=== PATIENT | male | born 1955 | race Hispanic/Latino ===

== ENCOUNTER 2016-11-09 18:52 | Emergency (ER) | payer SELFPAY ==
[2016-11-09 20:21] VITALS: BP 139/90
[2016-11-10] MEDS ORDERED: DECADRON IM ONE (00:19)
[2016-11-10] MEDS ORDERED: PROVENTIL IH ONE (00:19)
--- NOTE | 2016-11-10 00:23 | Emergency Department Report ---
- General Chief Complaint: Upper Respiratory Infection Stated Complaint: COLD SYMPTOMS/SINUS CONGESTION Source: patient Mode of arrival: Ambulatory Limitations: No Limitations - History of Present Illness Initial Comments: 61-year-old male comes in for complaint of nasal congestion cough no fever no chills for 1-1/2 months. Patient reports that he's been taking over-the- counter nasal spray from [employer] that's not working. She does have a past medical history of COPD asthma. He does admit to wheezing and coughing. He reports in the past he was given a steroid injection which helped with his nasal congestion and wheezing. He has no known drug allergies. - Related Data Home Medications Medication Instructions Recorded Confirmed Last Taken ALPRAZolam [Xanax TAB] 1 mg PO BID 04/14/15 04/14/15 04/14/15 Combivent Respimat 04/14/15 04/14/15 04/14/15 oxyCODONE ER [OxyCONTIN] 30 mg PO 5XD 04/14/15 04/14/15 04/14/15 traZODone [Desyrel] 50 mg PO BID 04/14/15 04/14/15 04/14/15 Previous Rx's Medication Instructions Recorded Last Taken Type ALBUTEROL Inhaler [ProAir HFA 2 puff IH QID PRN #1 inhalation 04/15/15 Unknown Rx Inhaler] Sulfamethoxazole/Trimethoprim 1 each PO BID #14 tablet 04/15/15 Unknown Rx [Bactrim DS TAB] predniSONE [Deltasone] 40 mg PO QDAY #10 tab 04/15/15 Unknown Rx Fluticasone [Flonase] 1 spray NS QDAY #1 bottle 11/10/16 Unknown Rx Allergies Allergy/AdvReac Type Severity Reaction Status Date / Time No Known Allergies Allergy Verified 04/15/15 02:50 ED Review of Systems ROS: Stated complaint: COLD SYMPTOMS/SINUS CONGESTION Other details as noted in HPI Constitutional: denies: chills, fever ENT: congestion. denies: ear pain, throat pain Respiratory: cough Cardiovascular: denies: chest pain, palpitations Gastrointestinal: denies: abdominal pain, nausea, diarrhea Musculoskeletal: denies: back pain, joint swelling, arthralgia Skin: denies: rash, lesions ED Past Medical Hx - Past Medical History Previous Medical History?: Yes Hx Psychiatric Treatment: Yes (anxiety) Hx COPD: Yes (emphysema) Additional medical history: Back pain with herniated disc - Surgical History Past Surgical History?: No - Social History Smoking Status: Current Every Day Smoker Substance Use Type: Prescribed - Medications Home Medications: Home Medications Medication Instructions Recorded Confirmed Last Taken Type ALPRAZolam [Xanax TAB] 1 mg PO BID 04/14/15 04/14/15 04/14/15 History Combivent Respimat 04/14/15 04/14/15 04/14/15 History oxyCODONE ER [OxyCONTIN] 30 mg PO 5XD 04/14/15 04/14/15 04/14/15 History traZODone [Desyrel] 50 mg PO BID 04/14/15 04/14/15 04/14/15 History ALBUTEROL Inhaler [ProAir HFA 2 puff IH QID PRN #1 inhalation 04/15/15 Unknown Rx Inhaler] Sulfamethoxazole/Trimethoprim 1 each PO BID #14 tablet 04/15/15 Unknown Rx [Bactrim DS TAB] predniSONE [Deltasone] 40 mg PO QDAY #10 tab 04/15/15 Unknown Rx Fluticasone [Flonase] 1 spray NS QDAY #1 bottle 11/10/16 Unknown Rx ED Physical Exam - General Limitations: No Limitations General appearance: alert, in no apparent distress - Head Head exam: Present: atraumatic, normocephalic - Eye Eye exam: Present: normal appearance, PERRL, EOMI - ENT ENT exam: Present: normal exam, mucous membranes moist - Neck Neck exam: Present: normal inspection - Respiratory Respiratory exam: Present: wheezes, rhonchi - Cardiovascular Cardiovascular Exam: Present: regular rate, normal rhythm, normal heart sounds - Extremities Exam Extremities exam: Absent: pedal edema ED Course Vital Signs 11/09/16 20:18 Temperature 97.9 F Pulse Rate 71 Respiratory 18 Rate Blood Pressure 139/90 O2 Sat by Pulse 98 Oximetry - Reevaluation(s) Reevaluation #1: 11/10/16 01:26 Patient reports that he feels a little bit better that he is able to breathe through his nose. He is still has some expiratory wheezing at the bases. He reports that he feels like he is breathing better. He does have an albuterol machine as well as albuterol nebs. ED Medical Decision Making - Medical Decision Making Patient's been evaluated by this provider in fast track. Discussed with patient that we'll order a nebulizer treatment. To help with his respiratory wheezing. We'll also ordered Decadron 8 mg IM now. We will discharge patient on Flonase 50 g. As well as placed patient on Claritin-D 1 tablet by mouth twice a day. Verbalize understanding Critical care attestation.: If time is entered above; I have spent that time in minutes in the direct care of this critically ill patient, excluding procedure time. ED Disposition Clinical Impression: Nasal congestion due to prolonged use of decongestants COPD (chronic obstructive pulmonary disease) Qualifiers: COPD type: chronic bronchitis Chronic bronchitis type: simple Qualified Code(s) : J41.0 - Simple chronic bronchitis Disposition: DISCHARGED TO HOME OR SELFCARE Is pt being admited?: No Does the pt Need Aspirin: No Condition: Stable Instructions: Chronic Obstructive Pulmonary Disease (ED) Additional Instructions: Patient uses nebulizer every 4-6 hours when necessary for wheezing and cough. Discussed with patient denies any placed on Flonase 50 g 1 spray to each nostril daily. Recommend him to stay away from the Afrin type nasal spray. Verbalized understanding Prescriptions: Fluticasone [Flonase] 1 spray NS QDAY #1 bottle Referrals: LEE HERNANDEZ MD [Staff Physician] - 3-5 Days Forms: Work/School Release Form(ED)
== END 2016-11-10 01:36 | disposition home or self-care (01) ==
LOC: ED 18:52
DX: R09.81 Nasal congestion (principal); J41.0 Simple chronic bronchitis; J43.9 Emphysema, unspecified; F41.9 Anxiety disorder, unspecified; F17.200 Nicotine dependence, unspecified, uncomplicated
CPT/HCPCS: 96372; 99282; J1100

== ENCOUNTER 2017-11-12 15:47 | Inpatient (IN) | payer OTHER ==
[2017-11-12] MEDS ORDERED: TORADOL IV ONE (19:36)
--- NOTE | 2017-11-12 19:40 | Emergency Department Report ---
- HPI History of Present Illness: Pt is a 62 yo male with a history of Copd here for left lower quad pain that radiates to his left upper quad. Pt states the pain feels like gas. - Exam Vital Signs: Vital Signs 11/12/17 15:52 Temperature 97.7 F Pulse Rate 113 H Respiratory 18 Rate Blood Pressure 129/87 O2 Sat by Pulse 95 Oximetry [facility] [place] screening note: Focused history and physical exam performed. Due to findings the following was ordered: labs, IV, Ct abd pelvis <TAI YOU - Last Filed: 11/12/17 19:57> - HPI History of Present Illness: Patient initially seen at [facility] [place], was sent to fast track for worsening shortness of breath left-sided upper quadrant pain patient has a history of COPD and tobacco ,he was sent to the main ED for further evaluation. Patient is a history of symptoms off and on since September apparently was having a COPD exacerbation in September and he's been around several sick people over the past several weeks and he says he is just getting worse and he's been "hardheaded and hesitant about coming in" he recently was exposed to the flu as well as a bronchitis. he denies any recent travel and denies any hemoptysis denies any weight loss denies any fever or denies any shaking chills denies any calf pain or swelling or chest pain - ROS Review of Systems: complete ros o/w neg, ros :+cough, fever, left-sided pleuritic pain and swelling no rash no headache no stiff neck no other complaints - Exam Vital Signs: Vital Signs 11/12/17 11/12/17 11/12/17 15:52 20:53 20:55 Temperature 97.7 F 98.2 F Pulse Rate 113 H 87 Pulse Rate [ 99 H Anterior Bilateral Throughout] Respiratory 18 24 Rate Respiratory 20 Rate [Anterior Bilateral Throughout] Blood Pressure 129/87 Blood Pressure 142/93 [Left] O2 Sat by Pulse 95 95 Oximetry 11/12/17 11/12/17 21:01 21:05 Temperature Pulse Rate Pulse Rate [ 94 H Anterior Bilateral Throughout] Respiratory 24 Rate Respiratory 20 Rate [Anterior Bilateral Throughout] Blood Pressure Blood Pressure [Left] O2 Sat by Pulse Oximetry Physical Exam: General he is awake alert oriented 3 and nontoxic neck was supple chest has crackles with some wheeze without retractions with left-sided pleuritic pain pulses were equal bilaterally cardiac was discharged without murmur gallop or rub abdomen soft nontender without rebound or guarding or mass extremities without clubbing social D with good capillary refill negative Homans sign pulses were equal neuro strength is equal bilaterally sensory was intact cerebellar was normal skin had no petechiae [facility] [place] screening note: Focused history and physical exam performed. Due to findings the following was ordered: This an addendum [place] [facility] [place]. Wang: Patient was reevaluated by me he was not to have a left-sided pneumonia with a loculated pleural effusion on CT. He did have some adenopathy on abdominal CT. He was noted to have a PE on a CT. Case was discussed with Dr. Alejandro who is on-call for hospitalist service will admit the patient for further evaluation. Patient did have blood cultures. He did have Rocephin and Zithromax. He also had 10-4. His lactic acid was negative. Will be admitted for further evaluation of a loculated pleural effusion with pneumonia and possible empyema <VICTOR MANUEL LUCAS - Last Filed: 11/13/17 00:01> Chief Complaint: Pain General Stated Complaint: LEFT LUNG PAIN Time Seen by Provider: 11/12/17 18:45 ED Medical Decision Making - Lab Data Result diagrams: 11/12/17 21:05 11/12/17 21:05 <VICTOR MANUEL LUCAS - Last Filed: 11/13/17 00:01> ED Disposition for [facility] [place] <TAI YOU - Last Filed: 11/12/17 19:57> Is pt being admited?: Yes Time of Disposition: 00:01 <VICTOR MANUEL LUCAS - Last Filed: 11/13/17 00:01> Clinical Impression: Pneumonia, Pleural effusion Disposition: 09 OP ADMIT IP TO THIS HOSP Condition: Stable Instructions: Bacterial Pneumonia (ED) Referrals: CAITIE JON MD [Primary Care Provider] - 3-5 Days
[2017-11-12] MEDS ORDERED: NACL 0.9% 1000 ML 1,000 ML IV ONE (19:42)
[2017-11-12] MEDS ORDERED: ASPIRIN PO ONE (19:56)
[2017-11-12] MEDS ORDERED: DUONEB *Not for PRN Use IH ONE (20:40)
[2017-11-12] MEDS ORDERED: PROVENTIL IH ONE (20:41)
[2017-11-12 21:30] LABS: Basophils # (Auto) 0.1 K/mm3 (0.0-0.1); Basophils % (Auto) 0.6 % (0.0-1.8); Eosinophils # (Auto) 0.3 K/mm3 (0.0-0.4); Eosinophils % (Auto) 3.5 % (0.0-4.3); Hematocrit 37.7 % (35.5-45.6); Lymphocytes # (Auto) 3.6 K/mm3 (1.2-5.4); Lymphocytes % (Auto) 40.3 % (13.4-35.0); Mean Corpuscular HGB Conc 35 % (32-34); Mean Corpuscular Hemoglobin 32 pg (28-32); Mean Corpuscular Volume 93 fl (84-94); Monocytes # (Auto) 0.8 K/mm3 (0.0-0.8); Monocytes % (Auto) 9.4 % (0.0-7.3); Platelet Count 400 K/mm3 (140-440); Red Blood Count 4.05 M/mm3 (3.65-5.03); Red Cell Distribution Width 12.3 % (13.2-15.2)
[2017-11-12] MEDS ORDERED: NACL ONE (21:39)
[2017-11-12 21:42] LABS: Alanine Aminotransferase 29 units/L (7-56); Albumin 3.1 g/dL (3.9-5); BUN/Creatinine Ratio 17; Blood Urea Nitrogen 12 mg/dL (9-20); Calcium 8.4 mg/dL (8.4-10.2); Hemolysis Index 0; Lipase 29 units/L (13-60)
[2017-11-12 21:43] LABS: Bilirubin,Direct < 0.2 mg/dL (0-0.2)
--- NOTE | 2017-11-12 21:45 | XRay Report ---
FINAL REPORT EXAM: XR CHEST ROUTINE 2V HISTORY: copd pain in left upper quad COMPARISON: None available. FINDINGS:: Frontal and lateral views of the chest obtained. Heart normal in size. Dense consolidation left lung base with moderate left-sided pleural effusion. Right lung is clear. No pneumothorax. IMPRESSION:: Consolidation effusion at the left lung base concerning for pneumonia.
[2017-11-12] MEDS ORDERED: ROCEPHIN/NS 1 GM/50 ML 1 GM/50 ML BAG IV ONE (21:50)
[2017-11-12] MEDS ORDERED: cefTRIAXone 1 GM in NACL 0.9% 20 ML IV ONE (22:00)
--- NOTE | 2017-11-12 22:45 | Cat Scan Report ---
FINAL REPORT EXAM: CT ABDOMEN PELVIS W CON HISTORY: left upper abd pain COMPARISON: None available. TECHNIQUE: Contiguous axial images were obtained. Additional sagittal and coronal reformatted images were obtained. Administration of IV contrast given per institution protocol. Images submitted for interpretation. FINDINGS: Please see CT of the chest from the same day for further details of the left lung base. No calcified gallstones or biliary dilatation. The common bile duct measures 4 millimeters. Liver is enlarged measuring 25 centimeters. The spleen is enlarged measuring 14 centimeters. No focal hepatic lesion. Homogeneous enhancement spleen and pancreas. No adrenal mass. Borderline to mildly enlarged upper abdominal lymph nodes. For example at the posterior margin of proximal stomach there is a 12 x 9 millimeter lymph node (series 3, image 152). No enlarged retroperitoneal or pelvic lymph nodes. Symmetric enhancement of the kidneys. No solid renal lesion or hydronephrosis. Aorta and IVC normal in caliber. Moderate calcification aorta. Urinary bladder and prostate gland are unremarkable. No free fluid or lymphadenopathy. The appendix is normal in caliber. Mild diverticulosis of left colon. No diverticulitis. No focal inflammatory changes the bowel. Mild degenerative changes of the lumbar spine. Bony pelvis is grossly intact. IMPRESSION: Several prominent borderline enlarged upper abdominal lymph nodes suspected to be reactive. Neoplastic lymphadenopathy less likely. No gross focal inflammatory changes of the abdomen and pelvis. Please see CT of the chest from the same day for further details of consolidation effusion at the left lung base.
--- NOTE | 2017-11-12 22:58 | Cat Scan Report ---
FINAL REPORT EXAM: CT CHEST W CON HISTORY: large left pleural effusion COMPARISON: Chest x-ray from today. CT abdomen and pelvis from the same date. TECHNIQUE: Contiguous axial images were obtained. Additional sagittal and coronal reformatted images were obtained. Administration of IV contrast given per institution protocol. Images submitted for interpretation. 100 cc Omnipaque [id number]. FINDINGS: Heart normal in size. Thoracic aorta normal in caliber. No dissection. No pulmonary embolus. No pathologically enlarged intrathoracic or axillary lymph nodes. Borderline enlarged left subcarinal lymph node measuring 9 x 13 millimeters. Likely reactive. Tracheobronchial tree is patent. Small to moderate left-sided pleural effusion which is partially loculated. Linear airspace consolidation left lower lobe in lingula concerning for atelectasis and/or pneumonia. Mild centrilobular emphysema. Linear patchy opacities at the lateral margin right upper lobe likely reflecting area of scarring. Active infection less likely. No pleural effusion on the right. Please see CT of the abdomen pelvis from the same day for further details of the visualized upper abdomen. [id number] degenerative changes of thoracic spine. 5 millimeter hypodense right thyroid lobe nodule. IMPRESSION: No pulmonary embolus. Small to moderate partially loculated left-sided pleural effusion with nonspecific consolidation of left lower lobe and lingula concerning for atelectasis and/or pneumonia. Patchy linear opacities at the lateral margin right upper lobe likely reflecting areas scarring. Active infection in that area is less likely.
[2017-11-12] MEDS ORDERED: ZITHROMAX PO ONE (23:16)
[2017-11-12] MEDS ORDERED: TAMIFLU PO ONE (23:25)
[2017-11-12] MEDS ORDERED: TYLENOL PO PRN (23:50)
[2017-11-12] MEDS ORDERED: DULCOLAX PR PRN (23:50)
[2017-11-12] MEDS ORDERED: MILK OF MAGNESIA PO PRN (23:50)
[2017-11-12] MEDS ORDERED: ZOFRAN IV PRN (23:50)
--- NOTE | 2017-11-12 23:53 | History and Physical Report ---
History of Present Illness Date of examination: 11/12/17 History of present illness: 62-year-old woman admitted history of COPD, anxiety, chronic pain comes to the Emergency room with complaints of left side pain going up close to the axilla. He describes the pain as sharp, worse with deep breath, ongoing 2 weeks. Also complaining of a cough productive of green-yellow phlegm, no fever or chills Review Of Systems: Constitutional: no weight loss Ears, eyes, nose, mouth and throat: no nasal congestion, no nasal discharge, no sinus pressure, blurry vision, diplopia Neck: No neck pain or rigidity. Cardiovascular: No chest pain, palpitations Respiratory: +shortness of breath, cough Gastrointestinal: No abdominal pain, hematochezia Genitourinary : no dysuria, frequency , hematuria Musculoskeletal: no muscle ache Integumentary: no rash, no pruritis Neurological: no parathesias, focal weakness Endocrine: no cold or heat intolerance, no polyuria or polydipsia Hematologic/Lymphatic: no easy bruising, no easy bleeding, no gland swelling Allergic/Immunologic: no urticaria, no angioedema. PAST MEDICAL HISTORY: COPD, anxiety, chronic pain. PAST SURGICAL HISTORY: None FAMILY HISTORY: Hypertension SOCIAL HISTORY: Denies alcohol, tobacco, drugs Medications and Allergies Allergies Allergy/AdvReac Type Severity Reaction Status Date / Time No Known Allergies Allergy Verified 04/15/15 02:50 Home Medications Medication Instructions Recorded Confirmed Last Taken Type ALPRAZolam [Xanax TAB] 1 mg PO BID 04/14/15 11/13/17 11/12/17 History oxyCODONE ER [OxyCONTIN] 30 mg PO 5XD 04/14/15 11/13/17 11/12/17 History 30mg traZODone [Desyrel] 4 mg PO DAILY 04/14/15 11/13/17 11/11/17 History 4 mg ALBUTEROL Inhaler [ProAir HFA 2 puff IH QID PRN #1 inhalation 04/15/15 11/13/17 11/11/17 Rx Inhaler] Fluticasone [Flonase] 1 spray NS QDAY #1 bottle 11/10/16 11/13/17 10/25/17 Rx Exam - Physical Exam Narrative exam: Gen. appearance: Patient lying in bed in no acute distress HEENT: Normocephalic/atraumatic, pupils equal round reactive to light, extra occular movement intact, no scleral icterus, no JVD or thyromegaly or nodule, neck is supple, mucous membrane moist, no erythema or exudate Heart: S1-S2, regular rate and rhythm Lungs: Crackles bilateral breathing comfortable Abdomen: Positive bowel sounds, nontender, nondistended, no organomegaly Extremities: No edema, cyanosis, clubbing Neuro:: Oriented 3 , cranial nerves II-12 intact, speech, motor intact Skin: No rash, nodules, warm dry - Constitutional Vitals: Temp Pulse Resp BP Pulse Ox 98.2 F 94 H 20 142/93 95 11/12/17 20:55 11/12/17 21:05 11/12/17 21:05 11/12/17 20:55 11/12/17 20:55 Results - Labs CBC & Chem 7: 11/12/17 21:05 11/12/17 21:05 Labs: Abnormal lab results 11/12/17 11/12/17 Range/Units 21:05 21:05 MCHC 35 H (32-34) % RDW 12.3 L (13.2-15.2) % Lymph % (Auto) 40.3 H (13.4-35.0) % [place] % (Auto) 9.4 H (0.0-7.3) % Sodium 133 L (137-145) mmol/L Chloride 94.7 L (98-107) mmol/L Creatinine 0.7 L (0.8-1.5) mg/dL Total Protein 8.8 H (6.3-8.2) g/dL Albumin 3.1 L (3.9-5) g/dL - Imaging and Cardiology EKG: image reviewed Chest x-ray: image reviewed CT scan - abdomen: report reviewed CT scan - chest: report reviewed Assessment and Plan Assessment Empyema COPD Anxiety Chronic pain Plan Admit to medicine Start IV Zosyn, follow cultures Consult pulmonary, DVT prophylaxis
[2017-11-13] MEDS: ZOSYN/NS 4.5GM/100ML 4.5 GM/100 ML VIAL IV SCH ×3 (00:50→16:12)
[2017-11-13 06:14] LABS: Basophils % (Auto) 0.2 % (0.0-1.8); Eosinophils % (Auto) 0.1 % (0.0-4.3); Hematocrit 34.7 % (35.5-45.6); Hemoglobin 12.2 gm/dl (11.8-15.2); Lymphocytes # (Auto) 0.8 K/mm3 (1.2-5.4); Lymphocytes % (Auto) 16.4 % (13.4-35.0); Mean Corpuscular HGB Conc 35 % (32-34); Mean Corpuscular Hemoglobin 33 pg (28-32); Mean Corpuscular Volume 93 fl (84-94); Monocytes # (Auto) 0.1 K/mm3 (0.0-0.8); Monocytes % (Auto) 2.6 % (0.0-7.3); Platelet Count 324 K/mm3 (140-440); Red Blood Count 3.75 M/mm3 (3.65-5.03)
[2017-11-13 06:30] LABS: BUN/Creatinine Ratio 16; Blood Urea Nitrogen 13 mg/dL (9-20); Calcium 8.4 mg/dL (8.4-10.2); Hemolysis Index 2
--- NOTE | 2017-11-13 08:04 | Progress Note ---
Assessment and Plan Assessment and plan: patient is a 62-year-old female with history of COPD, anxiety, chronic pain who presented to the emergency room with left-sided axillary pain. Admitted with diagnosis of likely to pleural effusion likely empyema on the left side. Of note the patient had complaints of shortness of breath ongoing for about 2 weeks now. Patient also has complained of productive cough of green to yellow phlegm. And also reported exposure to someone that has the flu. Duration of exposure is available to me on admission the patient was noted to be tachycardic but not hypoxic. There was also notation that the patient was visibly short of breath. Patient was initially seen in the ER on November 10 and discharged with complaint of what appeared to be sinusitis. States that she 's been taken [id number] medications on and off since September. Per report Former smoker and was incarcerated in the early . Left pleural empyema * Antibiotics, will review images with Pulmonary to see if patient will benefit from Surgical eval Likely to pleural effusion likely parapneumonic process * As noted above * Await fluid analysis Pneumonia possible post-influenza * Will expand antibiotics coverage to include Tamiflu and also Vancomyicin * Will check for active flu Pleuritic Chest pain * Secondary to empyema. * Pain Control as needed. COPD with acute exacerbation * DuoNeb's scheduled and when necessary Chronic pain syndrome * Pain control Anxiety * Resume home medications DVT and GI prophylaxis History Interval history: Patient seen and examined today in no acute distress reports persistent left thoracic chest wall pain. Denies any nausea vomiting or fever. Patient is for thoracentsis today. Hospitalist Physical - Physical exam Narrative exam: VITAL SIGNS: Reviewed. GENERAL: The patient appeared lethargic, chronically ill appearing. Vital signs as documented. HEAD: No signs of head trauma. EYES: Pupils are equal. Extraocular motions intact. EARS: Hearing grossly intact. MOUTH: Oropharynx is normal. NECK: No adenopathy, no JVD. CHEST: Chest with diminished breath sounds bilaterally with rales on axillary area. CARDIAC: Regular rate and rhythm. S1 and S2, without murmurs, gallops, or rubs. VASCULAR: No Edema. Peripheral pulses normal and equal in all extremities. ABDOMEN: Soft, without detectable tenderness. No sign of distention. No rebound or guarding, and no masses palpated. Bowel Sounds normal. MUSCULOSKELETAL: Good range of motion of all major joints. Extremities without clubbing, cyanosis or edema. NEUROLOGIC EXAM: Awake but lethargic and oriented x 3. No focal sensory or strength deficits. Speech normal. Follows commands. PSYCHIATRIC: Mood normal. SKIN: Tattoos - Constitutional Vitals: Temp Pulse Resp BP Pulse Ox 97.6 F 92 H 16 126/79 94 11/13/17 07:22 11/13/17 07:22 11/13/17 07:22 11/13/17 07:22 11/13/17 07:22 Results - Labs CBC & Chem 7: 11/13/17 05:08 11/13/17 05:08 Labs: Laboratory Last Values WBC 4.9 K/mm3 (4.5-11.0) 11/13/17 05:08 RBC 3.75 M/mm3 (3.65-5.03) 11/13/17 05:08 Hgb 12.2 gm/dl (11.8-15.2) 11/13/17 05:08 Hct 34.7 % (35.5-45.6) L 11/13/17 05:08 MCV 93 fl (84-94) 11/13/17 05:08 MCH 33 pg (28-32) H 11/13/17 05:08 MCHC 35 % (32-34) H 11/13/17 05:08 RDW 12.0 % (13.2-15.2) L 11/13/17 05:08 Plt Count 324 K/mm3 (140-440) 11/13/17 05:08 Lymph % (Auto) 16.4 % (13.4-35.0) 11/13/17 05:08 [place] % (Auto) 2.6 % (0.0-7.3) 11/13/17 05:08 Eos % (Auto) 0.1 % (0.0-4.3) 11/13/17 05:08 Baso % (Auto) 0.2 % (0.0-1.8) 11/13/17 05:08 Lymph # 0.8 K/mm3 (1.2-5.4) L 11/13/17 05:08 [place] # 0.1 K/mm3 (0.0-0.8) 11/13/17 05:08 Eos # 0.0 K/mm3 (0.0-0.4) 11/13/17 05:08 Baso # 0.0 K/mm3 (0.0-0.1) 11/13/17 05:08 Seg Neutrophils % 80.7 % (40.0-70.0) H 11/13/17 05:08 Seg Neutrophils # 4.0 K/mm3 (1.8-7.7) 11/13/17 05:08 VBG pH 7.400 (7.320-7.420) 11/12/17 21:05 Sodium 134 mmol/L (137-145) L 11/13/17 05:08 Potassium 3.8 mmol/L (3.6-5.0) 11/13/17 05:08 Chloride 97.0 mmol/L (98-107) L 11/13/17 05:08 Carbon Dioxide 24 mmol/L (22-30) 11/13/17 05:08 Anion Gap 17 mmol/L 11/13/17 05:08 BUN 13 mg/dL (9-20) 11/13/17 05:08 Creatinine 0.8 mg/dL (0.8-1.5) 11/13/17 05:08 Estimated GFR > 60 ml/min 11/13/17 05:08 BUN/Creatinine Ratio 16 % 11/13/17 05:08 Glucose 161 mg/dL (75-100) H 11/13/17 05:08 Lactic Acid 1.00 mmol/L (0.7-2.0) 11/12/17 21:05 Calcium 8.4 mg/dL (8.4-10.2) 11/13/17 05:08 Total Bilirubin 0.50 mg/dL (0.1-1.2) 11/12/17 21:05 Direct Bilirubin < 0.2 mg/dL (0-0.2) 11/12/17 21:05 AST 30 units/L (5-40) 11/12/17 21:05 ALT 29 units/L (7-56) 11/12/17 21:05 Alkaline Phosphatase 52 units/L (35-129) 11/12/17 21:05 Troponin T < 0.010 ng/mL (0.00-0.029) 11/12/17 21:05 Total Protein 8.8 g/dL (6.3-8.2) H 11/12/17 21:05 Albumin 3.1 g/dL (3.9-5) L 11/12/17 21:05 Albumin/Globulin Ratio 0.5 % 11/12/17 21:05 Lipase 29 units/L (13-60) 11/12/17 21:05 - Imaging and Cardiology CT scan - chest: image reviewed (loculated pleural effusion)
[2017-11-13] MEDS ORDERED: VANCOMYCIN VIAL IV ONE (08:12)
[2017-11-13] MEDS ORDERED: VANCOMYCIN 1,250 MG in NACL 0.9% 250ML 250 ML IV ONE (08:45)
[2017-11-13] MEDS ORDERED: VANCOMYCIN PHARMACY TO DOSE IV SCH (09:00)
--- NOTE | 2017-11-13 09:52 | Consultation ---
History of Present Illness Consult date: 11/13/17 Requesting physician: KRISH DEL RIO Reason for consult: pleural effusion History of present illness: 62 y/o male with left sided chest pain. Found to have left sided pleural effusion. Per patient had some cold-flu like symptoms prior to pain. cough productive of green sputum. Did not seek medical attention. Took some left over abx's that he had at home. Remainder of the review is positive for pleuritic chest pain. Former smoker and was incarcerated in the early . Past History Past Medical History: other (anxiety, allergic rhinitis) Social history: , smoking (quit 3 years ago) Family history: no significant family history Medications and Allergies Allergies Allergy/AdvReac Type Severity Reaction Status Date / Time No Known Allergies Allergy Verified 04/15/15 02:50 Home Medications Medication Instructions Recorded Confirmed Last Taken Type ALPRAZolam [Xanax TAB] 1 mg PO BID 04/14/15 11/13/17 11/12/17 History oxyCODONE ER [OxyCONTIN] 30 mg PO 5XD 04/14/15 11/13/17 11/12/17 History 30mg traZODone [Desyrel] 4 mg PO DAILY 04/14/15 11/13/17 11/11/17 History 4 mg ALBUTEROL Inhaler [ProAir HFA 2 puff IH QID PRN #1 inhalation 04/15/15 11/13/17 11/11/17 Rx Inhaler] Fluticasone [Flonase] 1 spray NS QDAY #1 bottle 11/10/16 11/13/17 10/25/17 Rx Active Meds: Active Medications Acetaminophen (Tylenol) 650 mg PO Q4H PRN PRN Reason: Pain MILD(1-3)/Fever >100.5/HESTER Bisacodyl (Dulcolax) 10 mg OR QDAY PRN PRN Reason: Constipation unrelieved by MOM Enoxaparin Sodium (Lovenox) 40 mg SUB-Q QDAY MAGDA Piperacillin Sod/Tazobactam Sod (Zosyn/Ns 4.5gm/100ml) 4.5 gm in 100 mls @ 200 mls/hr IV Q8H MAGDA Last Admin: 11/13/17 00:50 Dose: 200 mls/hr Vancomycin HCl 1,250 mg/ (Sodium Chloride) 262.5 mls @ 166.667 mls/hr IV ONCE ONE Stop: 11/13/17 10:19 Vancomycin HCl 1,250 mg/ (Sodium Chloride) 262.5 mls @ 166.667 mls/hr IV Q12H [facility] Influenza Virus Vaccine Quadrival (Fluarix Quad [id number](36 Mos+) 0.5 ml IM .ONCE ONE Stop: 11/13/17 12:01 Magnesium Hydroxide (Milk Of Magnesia) 30 ml PO Q4H PRN PRN Reason: Constipation Ondansetron HCl (Zofran) 4 mg IV Q8H PRN PRN Reason: N/V unrelieved by Reglan Oseltamivir Phosphate (Tamiflu) 75 mg PO BID MAGDA Stop: 11/17/17 22:01 Pneumococcal Polyvalent Vaccine (Pneumovax 23) 0.5 ml IM .ONCE ONE Stop: 11/13/17 12:01 Vancomycin HCl (Vancomycin Pharmacy To Dose) 1 each IV PKCONSULT MAGDA PRN Reason: Protocol Review of Systems All systems: negative Physical Examination Vital signs: Vital Signs Temp Pulse Resp BP Pulse Ox 97.7 F 113 H 18 129/87 95 11/12/17 15:52 11/12/17 15:52 11/12/17 15:52 11/12/17 15:52 11/12/17 15:52 General appearance: alert, appears uncomfortable Eyes: non-icteric ENT: oropharynx dry Neck: supple Effort: normal Ascultation: Left: rales (left base), Bilateral: diminished breath sounds Gastrointestinal: normoactive bowel sounds, soft, non-tender Extremities: other (tattoos on fingers and arms) Musculoskeletal: no deformities Gait: normal gait normal mental status, non-focal exam, CN II-XII normal mood appropriate Results - Laboratory Findings CBC and BMP: 11/13/17 05:08 11/13/17 05:08 Abnormal lab findings: Abnormal Labs 11/12/17 11/12/17 11/13/17 21:05 21:05 05:08 Hct 34.7 L MCH 33 H MCHC 35 H 35 H RDW 12.3 L 12.0 L Lymph % (Auto) 40.3 H [place] % (Auto) 9.4 H Lymph # 0.8 L Seg Neutrophils % 80.7 H Sodium 133 L Chloride 94.7 L Creatinine 0.7 L Glucose Total Protein 8.8 H Albumin 3.1 L 11/13/17 05:08 Hct MCH MCHC RDW Lymph % (Auto) [place] % (Auto) Lymph # Seg Neutrophils % Sodium 134 L Chloride 97.0 L Creatinine Glucose 161 H Total Protein Albumin - Diagnostic Findings Chest x-ray: image reviewed CT scan - chest: image reviewed Assessment and Plan 62 y/o male, former smoker, admitted with pleurisy and found to have a left sided pleural effusion. 1. Thoracentesis ordered 2. Will send for the following: LDH, Protein, cell count with diff, afb, fungal, gram stain and cultures, glucose.
[2017-11-13 11:23] LABS: INR 1.07 (0.87-1.13)
[2017-11-13] MEDS ORDERED: Fluarix Quad 2017-2018(36 MOS+ IM ONE (12:00)
[2017-11-13] MEDS ORDERED: PNEUMOVAX 23 IM ONE (12:00)
--- NOTE | 2017-11-13 14:55 | Ultrasound Report ---
ULTRASOUND THORACENTESIS History: Left pleural effusion. Description of procedure: Informed consent was obtained. Sterile technique was utilized. 1% lidocaine for skin anesthesia. Using ultrasound guidance, a 5 Ivorian centesis needle was advanced within a small, loculated left pleural effusion. Only 50 cc of clear yellow fluid could be aspirated. The sample was sent to the laboratory for analysis. No complications. Impression: Successful ultrasound-guided left thoracentesis. Only 50 cc of fluid could be aspirated as described.
[2017-11-13] MEDS: TAMIFLU PO SCH ×2 (14:59→21:38)
[2017-11-13] MEDS: LOVENOX SUB-Q SCH (14:59)
--- NOTE | 2017-11-13 14:59 | Procedure Note ---
Date of procedure: 11/13/17 Pre-op diagnosis: left pleural effusion Post-op diagnosis: same Procedure: US thoracentesis Findings: small,loculated left pleural effusion Anesthesia: local Surgeon: HARJINDER HINOJOSA Estimated blood loss: none Pathology: list (50cc) Specimen disposition: to lab Condition: stable Disposition: floor
--- NOTE | 2017-11-13 19:56 | XRay Report ---
FINAL REPORT EXAM: XR CHEST 1V AP HISTORY: SOB, left pleural effusion, recent thoracentesis TECHNIQUE: Frontal upright portable chest x-ray Comparison: 11/12/2017 CT and chest x-ray same day FINDINGS: There is a left pleural effusion in the lung base with patchy infiltrate in the left midlung. There is no pneumothorax identified. The right costophrenic angle is clipped. Previous CT chest demonstrated linear densities in the right upper lobe which are not seen to reflect active infiltrate on the current exam. IMPRESSION: Small left pleural effusion with subjacent consolidation. Ill-defined infiltrate or consolidation left midlung. No pneumothorax. Right costophrenic angle is clipped.
[2017-11-13] MEDS: VANCOMYCIN 1,250 MG in NACL 0.9% 250ML 250 ML IV SCH (21:37)
[2017-11-14] MEDS: ZOSYN/NS 4.5GM/100ML 4.5 GM/100 ML VIAL IV SCH ×3 (00:04→18:30)
[2017-11-14] MEDS: LOVENOX SUB-Q SCH (09:16)
[2017-11-14] MEDS: TAMIFLU PO SCH ×2 (09:16→22:52)
--- NOTE | 2017-11-14 09:30 | Progress Note ---
Assessment and Plan Assessment and plan: patient is a 62-year-old female with history of COPD, anxiety, chronic pain who presented to the emergency room with left-sided axillary pain. Admitted with diagnosis of likely to pleural effusion likely empyema on the left side. Of note the patient had complaints of shortness of breath ongoing for about 2 weeks now. Patient also has complained of productive cough of green to yellow phlegm. And also reported exposure to someone that has the flu. Duration of exposure is available to me on admission the patient was noted to be tachycardic but not hypoxic. There was also notation that the patient was visibly short of breath. Patient was initially seen in the ER on November 10 and discharged with complaint of what appeared to be sinusitis. States that she 's been taken [id number] medications on and off since September. Per report Former smoker and was incarcerated in the early . Left pleural empyema * Antibiotics, * if no improvement may need surgical eval * Discussed with cytology to send sample to micro and chemistry. Still awaiting results * await fluid analysis Likely to pleural effusion likely parapneumonic process * As noted above * Await fluid analysis Pneumonia possible post-influenza * Continue Tamiflu and also Vancomyicin Pleuritic Chest pain * Secondary to empyema. * Pain Control as needed. COPD with acute exacerbation * DuoNeb's scheduled and when necessary Chronic pain syndrome * Pain control Anxiety * Resume home medications DVT and GI prophylaxis History Interval history: Patient seen and examined today in no acute distress reports persistent left thoracic chest wall pain but much improved compared to yesterday. Denies any nausea vomiting or fever. Hospitalist Physical - Physical exam Narrative exam: VITAL SIGNS: Reviewed. GENERAL: The patient appeared in no acute distress today. Vital signs as documented. HEAD: No signs of head trauma. EYES: Pupils are equal. Extraocular motions intact. EARS: Hearing grossly intact. MOUTH: Oropharynx is normal. NECK: No adenopathy, no JVD. CHEST: Chest with diminished breath sounds bilaterally with rales on axillary area. CARDIAC: Regular rate and rhythm. S1 and S2, without murmurs, gallops, or rubs. VASCULAR: No Edema. Peripheral pulses normal and equal in all extremities. ABDOMEN: Soft, without detectable tenderness. No sign of distention. No rebound or guarding, and no masses palpated. Bowel Sounds normal. MUSCULOSKELETAL: Tender left chest wall area. Good range of motion of all major joints. Extremities without clubbing, cyanosis or edema. NEUROLOGIC EXAM: Awake and oriented x 3. No focal sensory or strength deficits. Speech normal. Follows commands. PSYCHIATRIC: Mood normal. SKIN: Tattoos - Constitutional Vitals: Temp Pulse Resp BP Pulse Ox 98.2 F 79 20 131/84 94 11/14/17 08:04 11/14/17 08:04 11/14/17 08:04 11/14/17 08:04 11/14/17 08:04 Results - Labs CBC & Chem 7: 11/13/17 05:08 11/13/17 05:08 Labs: Laboratory Last Values WBC 4.9 K/mm3 (4.5-11.0) 11/13/17 05:08 RBC 3.75 M/mm3 (3.65-5.03) 11/13/17 05:08 Hgb 12.2 gm/dl (11.8-15.2) 11/13/17 05:08 Hct 34.7 % (35.5-45.6) L 11/13/17 05:08 MCV 93 fl (84-94) 11/13/17 05:08 MCH 33 pg (28-32) H 11/13/17 05:08 MCHC 35 % (32-34) H 11/13/17 05:08 RDW 12.0 % (13.2-15.2) L 11/13/17 05:08 Plt Count 324 K/mm3 (140-440) 11/13/17 05:08 Lymph % (Auto) 16.4 % (13.4-35.0) 11/13/17 05:08 [place] % (Auto) 2.6 % (0.0-7.3) 11/13/17 05:08 Eos % (Auto) 0.1 % (0.0-4.3) 11/13/17 05:08 Baso % (Auto) 0.2 % (0.0-1.8) 11/13/17 05:08 Lymph # 0.8 K/mm3 (1.2-5.4) L 11/13/17 05:08 [place] # 0.1 K/mm3 (0.0-0.8) 11/13/17 05:08 Eos # 0.0 K/mm3 (0.0-0.4) 11/13/17 05:08 Baso # 0.0 K/mm3 (0.0-0.1) 11/13/17 05:08 Seg Neutrophils % 80.7 % (40.0-70.0) H 11/13/17 05:08 Seg Neutrophils # 4.0 K/mm3 (1.8-7.7) 11/13/17 05:08 PT 14.5 Sec. (12.2-14.9) 11/13/17 10:46 INR 1.07 (0.87-1.13) 11/13/17 10:46 VBG pH 7.400 (7.320-7.420) 11/12/17 21:05 Sodium 134 mmol/L (137-145) L 11/13/17 05:08 Potassium 3.8 mmol/L (3.6-5.0) 11/13/17 05:08 Chloride 97.0 mmol/L (98-107) L 11/13/17 05:08 Carbon Dioxide 24 mmol/L (22-30) 11/13/17 05:08 Anion Gap 17 mmol/L 11/13/17 05:08 BUN 13 mg/dL (9-20) 11/13/17 05:08 Creatinine 0.8 mg/dL (0.8-1.5) 11/13/17 05:08 Estimated GFR > 60 ml/min 11/13/17 05:08 BUN/Creatinine Ratio 16 % 11/13/17 05:08 Glucose 161 mg/dL (75-100) H 11/13/17 05:08 Lactic Acid 1.00 mmol/L (0.7-2.0) 11/12/17 21:05 Calcium 8.4 mg/dL (8.4-10.2) 11/13/17 05:08 Total Bilirubin 0.50 mg/dL (0.1-1.2) 11/12/17 21:05 Direct Bilirubin < 0.2 mg/dL (0-0.2) 11/12/17 21:05 AST 30 units/L (5-40) 11/12/17 21:05 ALT 29 units/L (7-56) 11/12/17 21:05 Alkaline Phosphatase 52 units/L (35-129) 11/12/17 21:05 Troponin T < 0.010 ng/mL (0.00-0.029) 11/12/17 21:05 Total Protein 8.8 g/dL (6.3-8.2) H 11/12/17 21:05 Albumin 3.1 g/dL (3.9-5) L 11/12/17 21:05 Albumin/Globulin Ratio 0.5 % 11/12/17 21:05 Lipase 29 units/L (13-60) 11/12/17 21:05
[2017-11-14] MEDS: VANCOMYCIN 1,250 MG in NACL 0.9% 250ML 250 ML IV SCH ×2 (10:22→22:52)
[2017-11-14] MEDS ORDERED: PNEUMOVAX 23 IM ONE (11:45)
[2017-11-14] MEDS ORDERED: Fluarix Quad 2017-2018(36 MOS+ IM ONE (11:45)
--- NOTE | 2017-11-14 12:56 | Progress Note ---
Assessment and Plan 62 y/o male, former smoker, admitted with pleurisy and found to have a left sided pleural effusion. 1. Unable to offer any new recs until PFA back. Not sure why these are send outs here. Subjective Date of service: 11/14/17 Interval history: Only able to aspirate 50cc's in rads on yesterday. All labs still pending as at this hospital they are send outs. ordered culture and gram stain but these are not resulting. Cytology pending. Objective Vital Signs - 12hr 11/14/17 11/14/17 05:11 08:04 Temperature 98.5 F 98.2 F Pulse Rate 88 79 Respiratory 18 20 Rate Blood Pressure 140/88 131/84 O2 Sat by Pulse 94 94 Oximetry Constitutional: alert, appears uncomfortable Eyes: non-icteric ENT: oropharynx dry Neck: supple Effort: normal Ascultation: Left: rales (left base), Bilateral: diminished breath sounds Gastrointestinal: normoactive bowel sounds, soft, non-tender Extremities: other (tattoos on fingers and arms) Neurologic: normal mental status, non-focal exam, CN II-XII normal Psychiatric: mood appropriate CBC and BMP: 11/13/17 05:08 11/13/17 05:08 ABG, PT/INR, D-dimer: PT/INR, D-dimer PT 14.5 Sec. (12.2-14.9) 11/13/17 10:46 INR 1.07 (0.87-1.13) 11/13/17 10:46 Abnormal lab findings: Abnormal Labs 11/12/17 11/12/17 11/13/17 21:05 21:05 05:08 Hct 34.7 L MCH 33 H MCHC 35 H 35 H RDW 12.3 L 12.0 L Lymph % (Auto) 40.3 H [place] % (Auto) 9.4 H Lymph # 0.8 L Seg Neutrophils % 80.7 H Sodium 133 L Chloride 94.7 L Creatinine 0.7 L Glucose Total Protein 8.8 H Albumin 3.1 L 11/13/17 05:08 Hct MCH MCHC RDW Lymph % (Auto) [place] % (Auto) Lymph # Seg Neutrophils % Sodium 134 L Chloride 97.0 L Creatinine Glucose 161 H Total Protein Albumin
[2017-11-14 14:41] LABS: Total Cells Counted 100 /mm3
[2017-11-15] MEDS: ZOSYN/NS 4.5GM/100ML 4.5 GM/100 ML VIAL IV SCH ×2 (01:01→08:11)
[2017-11-15 08:45] VITALS: BP 146/92
[2017-11-15] MEDS: VANCOMYCIN 1,250 MG in NACL 0.9% 250ML 250 ML IV SCH (08:55)
[2017-11-15] MEDS: TAMIFLU PO SCH (09:01)
[2017-11-15] MEDS: LOVENOX SUB-Q SCH (09:02)
--- NOTE | 2017-11-15 12:49 | Discharge Summary ---
Providers - Providers Date of Admission: 11/12/17 23:50 Attending physician: KRISH DEL RIO MD 11/12/17 23:50 Consult to Physician [CONS] Routine Consulting Provider: JACINTO SPANN Reason For Exam: empyema Place consult to:: dr. spann Notified:: answering service Phone number called:: Was contact made?: Yes If yes, spoke with:: chely Time called:: 07:52 Primary care physician: CAITIE JON Hospitalization Reason for admission: left pleuritic chest pain Condition: Stable Hospital course: patient is a 62-year-old female with history of COPD, anxiety, chronic pain who presented to the emergency room with left-sided axillary pain. Admitted with diagnosis of likely to pleural effusion likely empyema on the left side. Of note the patient had complaints of shortness of breath ongoing for about 2 weeks now. Patient also has complained of productive cough of green to yellow phlegm. And also reported exposure to someone that has the flu. Duration of exposure is available to me on admission the patient was noted to be tachycardic but not hypoxic. There was also notation that the patient was visibly short of breath. Patient was initially seen in the ER on November 10 and discharged with complaint of what appeared to be sinusitis. States that she 's been taken [id number] medications on and off since September. Per report Former smoker and was incarcerated in the early s. Patient started to have pleural empyema for which she had a thoracentesis. Studies so far have remained negative as milk or evidence of prior pneumonic infection. Nevertheless as we do not have all the results and the patient would like to discharge and is not having any fever I did give him a prescription of Levaquin to hold in case would call him with the results. Otherwise advised by has a repeat imaging study as 6-12 weeks to ensure resolution. He understands and will follow with his primary care physician and also with hand cloth folder we also did treat him with Tamiflu for presumable post-influenza pneumonia Discharge diagnosis Left pleural empyema Likely to pleural effusion likely parapneumonic process Pneumonia possible post-influenza Pleuritic Chest pain COPD with acute exacerbation Chronic pain syndrome Anxiety Disposition: - TO HOME OR SELFCARE Time spent for discharge: 35 mins Core Measure Documentation - Palliative Care Palliative Care/ Comfort Measures: Not Applicable - Core Measures Any of the following diagnoses?: none - VTE Discharge Requirements Deep Vein Thrombosis/Pulmonary Embolism Present on Admission: No Exam - Physical Exam Narrative exam: VITAL SIGNS: Reviewed. GENERAL: The patient appeared in no acute distress today. Vital signs as documented. HEAD: No signs of head trauma. EYES: Pupils are equal. Extraocular motions intact. EARS: Hearing grossly intact. MOUTH: Oropharynx is normal. NECK: No adenopathy, no JVD. CHEST: Chest with diminished breath sounds bilaterally with rales on axillary area. CARDIAC: Regular rate and rhythm. S1 and S2, without murmurs, gallops, or rubs. VASCULAR: No Edema. Peripheral pulses normal and equal in all extremities. ABDOMEN: Soft, without detectable tenderness. No sign of distention. No rebound or guarding, and no masses palpated. Bowel Sounds normal. MUSCULOSKELETAL: Tender left chest wall area. Good range of motion of all major joints. Extremities without clubbing, cyanosis or edema. NEUROLOGIC EXAM: Awake and oriented x 3. No focal sensory or strength deficits. Speech normal. Follows commands. PSYCHIATRIC: Mood normal. SKIN: Tattoos - Constitutional Vitals: Temp Pulse Resp BP Pulse Ox 98.6 F 78 20 146/92 95 11/15/17 07:22 11/15/17 07:22 11/15/17 07:22 11/15/17 07:22 11/15/17 08:36 Plan Activity: advance as tolerated, fall precautions Diet: regular Special Instructions: record daily weights, record daily BP diary, record blood sugar diary Follow up with: CAITIE JON MD [Primary Care Provider] - 3-5 Days REY ELLIS MD [Staff Physician] - 7 Days Prescriptions: Levofloxacin [Levaquin] 750 mg PO QDAY #5 tablet Oseltamivir [Tamiflu] 75 mg PO BID #8 capsule
[2017-11-16 07:17] LABS: LDH,Body Fluid 249; Total Protein,Body Fluid 5.8 (15.0-45.0)
== END 2017-11-15 15:30 | disposition home or self-care (01) | DRG 177 ==
LOC: ED 15:47 → 3A 23:50
PROVIDERS: ADMIT Internal Medicine; ATTEND Internal Medicine
PROC: 3E0234Z Introduction of Serum, Toxoid and Vaccine into Muscle, Percutaneous Approach (ICD-10-PCS; principal; 2017-11-13)
PROC: 0W9B3ZZ Drainage of Left Pleural Cavity, Percutaneous Approach (ICD-10-PCS; 2017-11-13)
DX: J86.9 Pyothorax without fistula (principal); J18.9 Pneumonia, unspecified organism; J44.0 Chronic obstructive pulmonary disease with (acute) lower respiratory infection; J44.1 Chronic obstructive pulmonary disease with (acute) exacerbation; F41.9 Anxiety disorder, unspecified; G89.4 Chronic pain syndrome; Z82.49 Family history of ischemic heart disease and other diseases of the circulatory system; Z23 Encounter for immunization; Z88.8 Allergy status to other drugs, medicaments and biological substances; Z79.51 Long term (current) use of inhaled steroids; Z87.891 Personal history of nicotine dependence
CPT/HCPCS: 32555; 36415; 71045; 71046; 71260; 74177; 80048; 80074; 82140; 82805; 82947; 83605; 83690; 84160; 84484; 85025; 85610; 87040; 87102; 87116; 88112; 88305; 89051; 90686; 90732; 93005; 93010; 94640; 96374; 96375; 99285; J0696; J1650; J1885; J2543; J2930; J3370; J7030; J7050; Q9967

== ENCOUNTER 2019-11-06 14:12 | Emergency (ER) | payer SELFPAY ==
[2019-11-06 14:16] VITALS: BP 154/95
[2019-11-06] MEDS ORDERED: oxyCODONE /ACETAMINOPHEN 5-325MG TAB PO ONE (14:46)
[2019-11-06] MEDS ORDERED: ONDANSETRON 4 MG ODT TAB PO ONE (14:46)
--- NOTE | 2019-11-06 14:48 | Emergency Department Report ---
Chief Complaint: Back Pain/Injury Stated Complaint: LEFT KIDNEY PAIN Time Seen by Provider: 11/06/19 14:47 - HPI History of Present Illness: 64 y/o male p/w 1) left testicular pain since last night 2) left flank pain to left groin x 1 week left testicle tender labs ua ct a/p testicle ultrasound reassess Vital Signs 11/06/19 14:15 Temperature 97.5 F L Pulse Rate 105 H Respiratory 18 Rate Blood Pressure 154/95 O2 Sat by Pulse 95 Oximetry - Exam Vital Signs: Vital Signs 11/06/19 14:15 Temperature 97.5 F L Pulse Rate 105 H Respiratory 18 Rate Blood Pressure 154/95 O2 Sat by Pulse 95 Oximetry MSE screening note: Focused history and physical exam performed. Due to findings the following was ordered: ED Disposition for MSE Condition: Stable
[2019-11-06 16:08] LABS: Hemoglobin 15.6 gm/dl (11.8-15.2); Mean Corpuscular HGB Conc 36 % (32-34); Mean Corpuscular Volume 95 fl (84-94); Platelet Count 212 K/mm3 (140-440); Red Blood Count 4.62 M/mm3 (3.65-5.03); Red Cell Distribution Width 12.6 % (13.2-15.2)
--- NOTE | 2019-11-06 16:13 | Ultrasound Report ---
ULTRASOUND TESTICULAR DOPPLER COMPLETE HISTORY: Testicular pain TECHNIQUE: Grayscale ultrasound with color and spectral Doppler interrogation. COMPARISON: None. FINDINGS: The right testicle measures 4.2 x 2.3 x 2.8 cm. The left testicle measures 4.0 x 1.8 x 2.7 cm. No erika dence for testicular cyst, mass or calcifications. The epididymides are normal size and contour. There are 2 small cysts in the left epididymal head david suring 5 mm and 6 mm. Spectral Doppler waveforms demonstrate arterial flow to both testicles. No significant hydrocele or varicocele. IMPRESSION: Left epididymal head cysts as described. Otherwise, unremarkable exam. No evidence for ma ss, torsion or inflammation. Signer Name: Alexi Hall Jr, MD Signed: 11/06/2019 4:09 PM Workstation Name: [id number]
[2019-11-06 16:27] LABS: BUN/Creatinine Ratio 18; Blood Urea Nitrogen 14 mg/dL (9-20); Hemolysis Index 13
--- NOTE | 2019-11-06 16:52 | Cat Scan Report ---
CT ABDOMEN AND PELVIS WITHOUT CONTRAST HISTORY: Left flank pain for one week. COMPARISON: CT of abdomen and pelvis on 11/12/2017. TECHNIQUE: Routine abdominal and pelvic CT exam performed without contrast. Lack of intravenous cont rast limits evaluation of the vascular and solid organs.. All CT scans at this location are performed using CT dose reduction for ALARA by means of automated exposure control. FINDINGS: CT ABDOMEN: Lung Bases: No significant abnormality. Liver: Stable calcified granuloma in the right hepatic lobe. No acute liver abnormality. Biliary: No significant abnormality. Spleen: No significant abnormality. Unenlarged. Pancreas: No significant abnormality. Adrenals: No significant abnormality. Kidneys: No stones, pelvocaliectasis, ureterectasis. No perinephric or periureteral stranding. Lymphatics: No lymphadenopathy. Vasculature: Atherosclerotic but nonaneurysmal abdominal aorta. Bowel/Peritoneum: Nonobstructive bowel. Sigmoid diverticulosis without mesocolonic fat stranding. No free air. No free fluid. Normal appendix. CT PELVIC: : No significant abnormality. Lymphatics: No lymphadenopathy. Osseous Structures: No aggressive appearing osseous lesions. Additional Findings: None IMPRESSION: 1. No findings to explain left flank pain. 2. Sigmoid diverticulosis without evidence of diverticulitis. Signer Name: Blanco Dominguez MD Signed: 11/06/2019 4:48 PM Workstation Name: [email or web address]
--- NOTE | 2019-11-06 18:45 | Emergency Department Report ---
ED Abdominal Pain HPI - General Chief Complaint: Back Pain/Injury Stated Complaint: LEFT KIDNEY PAIN Time Seen by Provider: 11/06/19 14:47 Source: patient Mode of arrival: Ambulatory Limitations: No Limitations - History of Present Illness Initial Comments: This is a 64-year-old male that presents to the emergency room with left flank pain radiating into his left testicle for one week. Patient states initially he thought he pulled a muscle after lifting something wrong way. Patient states he's taken prescribed analgesics from pain management with no management of pain. He denies urinary frequency, urgency, dysuria, penile discharge, testicular swelling or pain. MD Complaint: flank pain Onset/Timin -: week(s) Location: L flank Radiation: other (left testicle) Migration to: no migration Severity: severe Severity scale (0 -10): 10 Quality: stabbing Consistency: intermittent Improves With: nothing Worsens With: nothing Associated Symptoms: denies: nausea, vomiting, diarrhea, fever, chills, constipation, dysuria, hematemesis, hematochezia, melena, hematuria, anorexia, syncope Treatments Prior to Arrival: prescription analgesics - Related Data Home Medications Medication Instructions Recorded Confirmed Last Taken ALPRAZolam [Xanax TAB] 1 mg PO BID 04/14/15 11/13/17 11/12/17 oxyCODONE ER [oxyCONTIN ER] 30 mg PO 5XD 04/14/15 11/13/17 11/12/17 30 mg traZODone [Desyrel] 4 mg PO DAILY 04/14/15 11/13/17 11/11/17 4 mg Previous Rx's Medication Instructions Recorded Last Taken Type Albuterol INH(or & Nicu Only) 2 puff IH QID PRN #1 inhalation 04/15/15 11/11/17 Rx [ProAir HFA Inhaler] Fluticasone [Flonase] 1 spray NS QDAY #1 bottle 11/10/16 10/25/17 Rx Oseltamivir [Tamiflu] 75 mg PO BID #8 capsule 11/15/17 Unknown Rx levoFLOXacin [Levaquin] 750 mg PO QDAY #5 tablet 11/15/17 Unknown Rx Allergies Allergy/AdvReac Type Severity Reaction Status Date / Time No Known Allergies Allergy Verified 04/15/15 02:50 ED Review of Systems ROS: Stated complaint: LEFT KIDNEY PAIN Other details as noted in HPI Constitutional: denies: chills, fever Respiratory: denies: cough, shortness of breath, wheezing Cardiovascular: denies: chest pain, palpitations Gastrointestinal: abdominal pain (left flank pain). denies: nausea, diarrhea Genitourinary: testicular pain (left). denies: urgency, dysuria Musculoskeletal: back pain. denies: joint swelling, arthralgia Skin: denies: rash, lesions Neurological: denies: headache, weakness, paresthesias Psychiatric: denies: anxiety, depression ED Past Medical Hx - Past Medical History Hx Psychiatric Treatment: Yes (anxiety) Hx Asthma: Yes Hx COPD: Yes Additional medical history: Back pain with herniated disc - Surgical History Past Surgical History?: No - Social History Smoking Status: Unknown if ever smoked Substance Use Type: None - Medications Home Medications: Home Medications Medication Instructions Recorded Confirmed Last Taken Type ALPRAZolam [Xanax TAB] 1 mg PO BID 04/14/15 11/13/17 11/12/17 History oxyCODONE ER [oxyCONTIN ER] 30 mg PO 5XD 04/14/15 11/13/17 11/12/17 History 30 mg traZODone [Desyrel] 4 mg PO DAILY 04/14/15 11/13/17 11/11/17 History 4 mg Albuterol INH(or & Nicu Only) 2 puff IH QID PRN #1 inhalation 04/15/15 11/13/17 11/11/17 Rx [ProAir HFA Inhaler] Fluticasone [Flonase] 1 spray NS QDAY #1 bottle 11/10/16 11/13/17 10/25/17 Rx Oseltamivir [Tamiflu] 75 mg PO BID #8 capsule 11/15/17 Unknown Rx levoFLOXacin [Levaquin] 750 mg PO QDAY #5 tablet 11/15/17 Unknown Rx ED Physical Exam - General Limitations: No Limitations General appearance: alert, in no apparent distress, obese - Respiratory Respiratory exam: Present: normal lung sounds bilaterally. Absent: respiratory distress - Cardiovascular Cardiovascular Exam: Present: regular rate, normal rhythm. Absent: systolic murmur, diastolic murmur, rubs, gallop - GI/Abdominal GI/Abdominal exam: Present: soft, tenderness (lower quadrant tenderness), normal bowel sounds. Absent: distended, guarding, rebound, rigid, organomegaly, mass, pulsatile mass, hernia - Extremities Exam Extremities exam: Present: normal inspection - Back Exam Back exam: Present: CVA tenderness (L). Absent: CVA tenderness (R) - Neurological Exam Neurological exam: Present: alert, oriented X3, normal gait - Psychiatric Psychiatric exam: Present: normal affect, normal mood - Skin Skin exam: Present: warm, dry, intact, normal color. Absent: rash ED Course Vital Signs 11/06/19 14:15 Temperature 97.5 F L Pulse Rate 105 H Respiratory 18 Rate Blood Pressure 154/95 O2 Sat by Pulse 95 Oximetry ED Medical Decision Making - Lab Data Result diagrams: 11/06/19 15:59 11/06/19 15:59 Lab Results 11/06/19 11/06/19 11/06/19 Range/Units 15:59 15:59 Unknown WBC 8.5 (4.5-11.0) K/mm3 RBC 4.62 (3.65-5.03) M/mm3 Hgb 15.6 H (11.8-15.2) gm/dl Hct 44.0 (35.5-45.6) % MCV 95 H (84-94) fl MCH 34 H (28-32) pg MCHC 36 H (32-34) % RDW 12.6 L (13.2-15.2) % Plt Count 212 (140-440) K/mm3 Sodium 138 (137-145) mmol/L Potassium 4.1 (3.6-5.0) mmol/L Chloride 102.6 (98-107) mmol/L Carbon Dioxide 26 (22-30) mmol/L Anion Gap 14 mmol/L BUN 14 (9-20) mg/dL Creatinine 0.8 (0.8-1.5) mg/dL Estimated GFR > 60 ml/min BUN/Creatinine Ratio 18 % Glucose 94 (75-100) mg/dL Calcium 9.0 (8.4-10.2) mg/dL Magnesium 2.00 (1.7-2.3) mg/dL Total Creatine Kinase 119 (55-170) units/L Urine Color Yellow (Yellow) Urine Turbidity Clear (Clear) Urine pH 7.0 (5.0-7.0) Ur Specific [place] 1.010 (1.003-1.030) Urine Protein <15 mg/dl (Negative) mg/dL Urine Glucose (UA) Neg (Negative) mg/dL Urine Ketones Neg (Negative) mg/dL Urine Blood Neg (Negative) Urine Nitrite Neg (Negative) Urine Bilirubin Neg (Negative) Urine Urobilinogen < 2.0 (<2.0) mg/dL Ur Leukocyte Esterase Neg (Negative) Urine WBC (Auto) < 1.0 (0.0-6.0) /HPF Urine RBC (Auto) 1.0 (0.0-6.0) /HPF - Radiology Data Radiology results: report reviewed ULTRASOUND TESTICULAR DOPPLER COMPLETE HISTORY: Testicular pain TECHNIQUE: Grayscale ultrasound with color and spectral Doppler interrogation. COMPARISON: None. FINDINGS: The right testicle measures 4.2 x 2.3 x 2.8 cm. The left testicle measures 4.0 x 1.8 x 2.7 cm. No evidence for testicular cyst, mass or calcifications. The epididymides are normal size and contour. There are 2 small cysts in the left epididymal head measuring 5 mm and 6 mm. Spectral Doppler waveforms demonstrate arterial flow to both testicles. No significant hydrocele or varicocele. IMPRESSION: Left epididymal head cysts as described. Otherwise, unremarkable exam. No evidence for mass, torsion or inflammation. CT ABDOMEN AND PELVIS WITHOUT CONTRAST HISTORY: Left flank pain for one week. COMPARISON: CT of abdomen and pelvis on 11/12/2017. TECHNIQUE: Routine abdominal and pelvic CT exam performed without contrast. Lack of intravenous contrast limits evaluation of the vascular and solid organs.. All CT scans at this location are performed using CT dose reduction for ALARA by means of automated exposure control. FINDINGS: CT ABDOMEN: Lung Bases: No significant abnormality. Liver: Stable calcified granuloma in the right hepatic lobe. No acute liver abnormality. Biliary: No significant abnormality. Spleen: No significant abnormality. Unenlarged. Pancreas: No significant abnormality. Adrenals: No significant abnormality. Kidneys: No stones, pelvocaliectasis, ureterectasis. No perinephric or periureteral stranding. Lymphatics: No lymphadenopathy. Vasculature: Atherosclerotic but nonaneurysmal abdominal aorta. Bowel/Peritoneum: Nonobstructive bowel. Sigmoid diverticulosis without mesocolonic fat stranding. No free air. No free fluid. Normal appendix. CT PELVIC: : No significant abnormality. Lymphatics: No lymphadenopathy. Osseous Structures: No aggressive appearing osseous lesions. Additional Findings: None IMPRESSION: 1. No findings to explain left flank pain. 2. Sigmoid diverticulosis without evidence of diverticulitis. - Medical Decision Making This is a 64-year-old male that presents to the emergency room with left flank pain radiating into his left testicle for one week. Vitals are stable and patient in no acute distress. Patient given analgesics and anti-emetic. Workup: Urinalysis, BMP, CBC, ultrasound of testicles, and CT of abdomen and pelvis. All labs are unremarkable. Incidental findings on ultrasound and CT. Ultrasound findings of testicles Left epididymal head cysts as described. Otherwise, unremarkable exam. No evidence for mass, torsion or inflammation. CT of abdomen findings 1. No findings to explain left flank pain. 2. Sigmoid diverticulosis without evidence of diverticulitis. Patient instructed to continue taken prescribed medication from pain management. Referral to PCP for continued care. Patient discharged home stable. Critical care attestation.: If time is entered above; I have spent that time in minutes in the direct care of this critically ill patient, excluding procedure time. ED Disposition Clinical Impression: Acute left flank pain, Left testicular pain, Diverticulosis of colon without diverticulitis Disposition: TO HOME OR SELFCARE Is pt being admited?: No Condition: Stable Instructions: Diverticulosis Diet (ED), Diverticulosis (ED) Additional Instructions: Follow-up with the primary care doctor in 2-3 days or return to the ER with worsening symptoms. Referrals: DESI ALANIZ MD [Staff Physician] - 3-5 Days [facility], [facility] [Provider Group] - 3-5 Days [facility] [Outside] - 3-5 Days Forms: Work/School Release Form(ED) Time of Disposition: 19:30
[2019-11-06 19:00] LABS: Bilirubin,Urine NEG (Negative); Blood,Urine NEG (Negative); Color,Urine Yellow (Yellow); Protein,Urine <15 mg/dL mg/dL (Negative); Urobilinogen,Urine < 2.0 mg/dL (<2.0); WBC,Urine < 1.0 /HPF (0.0-6.0)
== END 2019-11-06 19:55 | disposition home or self-care (01) ==
LOC: ED 14:12
DX: K57.10 Diverticulosis of small intestine without perforation or abscess without bleeding (principal); N50.812 Left testicular pain; J44.9 Chronic obstructive pulmonary disease, unspecified; F41.9 Anxiety disorder, unspecified; Z79.899 Other long term (current) drug therapy
CPT/HCPCS: 36415; 74176; 80048; 81001; 82550; 83735; 85027; 93975; Q0162

== ENCOUNTER 2021-11-26 05:16 | Inpatient (IN) | payer SELFPAY ==
[2021-11-26] MEDS ORDERED: SODIUM CHLORIDE 0.9% 500 ML 500 ML IV ONE (05:23)
[2021-11-26] MEDS ORDERED: IPRATROPIUM 0.02% NEBU 2.5 ML IH ONE (05:24)
[2021-11-26] MEDS ORDERED: MAGNESIUM SULFATE 2 GM/50 ML BAG IV ONE (05:24)
[2021-11-26] MEDS ORDERED: ALBUTEROL 2.5 MG/3 ML NEBU IH ONE (05:24)
[2021-11-26] MEDS ORDERED: methylPREDNISolone Sod Succinate 125 MG/2 ML INJ IV ONE (05:24)
--- NOTE | 2021-11-26 05:26 | Event Note ---
Date: 11/26/21 The patient was evaluated in the emergency department for symptoms described in the history of present illness. He/she was evaluated in the context of the global COVID-19 pandemic, which necessitated consideration that the patient might be at risk for infection with the virus that causes COVID-19. Institutional protocols and algorithms that pertain to the evaluation of patients at risk for COVID-19 are in a state of rapid change based on information released by regulatory bodies including the CDC and federal and state organizations. These policies and algorithms were followed during the patient's care in the emergency department. Please note that these policies, procedures and recommendations changed on a rapid basis. Medical screening examination: 66-year-old gentleman, with history of COPD, presenting to the ER today with complaints of cough, wheezing, shortness of breath. Patient no visible respiratory distress, audible wheezing appreciated. Place patient on electronic device monitor, start albuterol, Atrovent, steroids, magnesium obtain appropriate laboratory studies, EKG, chest x-ray, Detailed history and physical to be performed by oncoming ER provider, who will arrange for final disposition.
[2021-11-26] MEDS ORDERED: cefTRIAXone/NS 1 GM/50 ML 1 GM/50 ML BAG IV ONE (05:33)
[2021-11-26] MEDS ORDERED: AZITHROMYCIN/NS 500 MG/250 ML 500 MG/250 ML BAG IV ONE ×2 (05:33→09:30)
[2021-11-26] MEDS ORDERED: MIDAZOLAM 2 MG/2 ML INJ IV ONE (05:34)
--- NOTE | 2021-11-26 05:39 | Emergency Department Report ---
ED General Adult HPI - General Chief complaint: Dyspnea/Respdistress Stated complaint: FANY PUI?: No Time Seen by Provider: 11/26/21 05:33 Source: patient, RN notes reviewed, old records reviewed Mode of arrival: Stretcher Limitations: Physical Limitation - History of Present Illness Initial comments: The patient was evaluated in the emergency department for symptoms described in the history of present illness. He/she was evaluated in the context of the global COVID-19 pandemic, which necessitated consideration that the patient might be at risk for infection with the virus that causes COVID-19. Institutional protocols and algorithms that pertain to the evaluation of patients at risk for COVID-19 are in a state of rapid change based on information released by regulatory bodies including the CDC and federal and state organizations. These policies and algorithms were followed during the patient's care in the emergency department. Please note that these policies, procedures and recommendations changed on a rapid basis. Past medical history: COPD, parapneumonic pleural effusion, presumed post influenza pneumonia, pleuritic chest pain, COPD, chronic pain syndrome and anxiety. The patient is a 66-year-old gentleman, who has received 1 COVID-19 vaccination, presenting to the ER with a complaint of 1 week of cough, mucus production, chest wall tightness or shortness of breath. Denies travel, surgery, immobiliz ation, DVT/PE risk factors -: Gradual, days(s) Consistency: constant Improves with: none Worsens with: movement - Related Data Home Medications Medication Instructions Recorded Confirmed Last Taken ALPRAZolam [Xanax TAB] 1 mg PO BID 04/14/15 11/26/21 11/25/21 oxyCODONE ER [oxyCONTIN ER] 30 mg PO TID 04/14/15 11/26/21 11/25/21 traZODone [Desyrel] 1 tab PO DAILY 04/14/15 11/26/21 11/25/21 Cetirizine HCl [Allergy] 10 mg PO BID 11/26/21 11/26/21 Unknown Previous Rx's Medication Instructions Recorded Last Taken Type Albuterol Mdi (or & Nicu Only) 2 puff IH QID PRN #1 inhalation 04/15/15 11/11/17 Rx [ProAir HFA Inhaler] Fluticasone [Flonase] 1 spray NS QDAY #1 bottle 11/10/16 10/25/17 Rx Allergies Allergy/AdvReac Type Severity Reaction Status Date / Time No Known Allergies Allergy Verified 04/15/15 02:50 ED Review of Systems ROS: Stated complaint: FANY Other details as noted in HPI Comment: Unobtainable due to pts medical conditions Constitutional: malaise. denies: fever ENT: congestion Respiratory: cough, shortness of breath, SOB with exertion, SOB at rest, wheezing Cardiovascular: other (Chest wall pain with coughing) Gastrointestinal: denies: abdominal pain, melena, hematochezia Neurological: weakness Psychiatric: anxiety ED Past Medical Hx - Past Medical History Hx Psychiatric Treatment: Yes (anxiety) Hx Asthma: Yes Hx COPD: Yes Additional medical history: Back pain with herniated disc - Social History Smoking Status: Unknown if ever smoked Substance Use Type: None - Medications Home Medications: Home Medications Medication Instructions Recorded Confirmed Last Taken Type ALPRAZolam [Xanax TAB] 1 mg PO BID 04/14/15 11/26/21 11/25/21 History oxyCODONE ER [oxyCONTIN ER] 30 mg PO TID 04/14/15 11/26/21 11/25/21 History traZODone [Desyrel] 1 tab PO DAILY 04/14/15 11/26/21 11/25/21 History Albuterol Mdi (or & Nicu Only) 2 puff IH QID PRN #1 inhalation 04/15/15 11/26/21 11/11/17 Rx [ProAir HFA Inhaler] Fluticasone [Flonase] 1 spray NS QDAY #1 bottle 11/10/16 11/26/21 10/25/17 Rx Cetirizine HCl [Allergy] 10 mg PO BID 11/26/21 11/26/21 Unknown History ED Physical Exam - General Limitations: Physical Limitation General appearance: alert, anxious, in distress, obese - Head Head exam: Present: atraumatic, normocephalic - Eye Eye exam: Present: normal appearance, EOMI. Absent: nystagmus - ENT ENT exam: Present: normal exam, normal orophraynx, mucous membranes moist, normal external ear exam - Neck Neck exam: Present: normal inspection, full ROM. Absent: tenderness - Respiratory Respiratory exam: Present: respiratory distress, wheezes, rhonchi, accessory muscle use - Cardiovascular Cardiovascular Exam: Present: normal rhythm, tachycardia, normal heart sounds. Absent: bradycardia, irregular rhythm, systolic murmur, diastolic murmur, rubs, gallop - GI/Abdominal GI/Abdominal exam: Present: soft. Absent: distended, tenderness, guarding, rebound, rigid, pulsatile mass - Rectal Rectal exam: Present: deferred - Extremities Exam Extremities exam: Present: normal inspection, full ROM, other (2+ pulses noted in the bilateral upper and lower extremities. There is no palpable cord. negative Homans sign. Muscular compartments are soft. The pelvis is stable.). Absent: calf tenderness - Back Exam Back exam: Present: normal inspection. Absent: tenderness, CVA tenderness (R), CVA tenderness (L), paraspinal tenderness, vertebral tenderness - Neurological Exam Neurological exam: Present: alert, other (No facial droop. Tongue midline. Extraocular movements intact bilaterally. Facial sensation intact to light touch in V1, V2, V3 distribution bilaterally. 5 and a 5 strength in 4 extremities. Sensation intact to light touch in 4 extremities.) - Psychiatric Psychiatric exam: Present: anxious - Skin Skin exam: Present: warm, dry, intact, normal color. Absent: rash ED Course Vital Signs 11/26/21 11/26/21 11/26/21 05:27 05:31 05:49 Pulse Rate 131 H 128 H Pulse Rate [ 98 H Throughout] Respiratory 28 H Rate Respiratory 26 H Rate [ Throughout] Blood Pressure 134/89 O2 Sat by Pulse 91 100 Oximetry 11/26/21 11/26/21 11/26/21 05:52 06:01 06:31 Pulse Rate 93 H 89 83 Pulse Rate [ Throughout] Respiratory 21 15 21 Rate Respiratory Rate [ Throughout] Blood Pressure 108/73 102/63 126/88 O2 Sat by Pulse 99 98 97 Oximetry 11/26/21 11/26/21 11/26/21 07:01 07:06 07:31 Pulse Rate 86 87 88 Pulse Rate [ Throughout] Respiratory 19 18 15 Rate Respiratory Rate [ Throughout] Blood Pressure 129/79 129/79 125/83 O2 Sat by Pulse 98 96 98 Oximetry 11/26/21 11/26/21 11/26/21 08:01 08:31 09:01 Pulse Rate 83 96 H 89 Pulse Rate [ Throughout] Respiratory 16 18 16 Rate Respiratory Rate [ Throughout] Blood Pressure 113/68 133/79 127/79 O2 Sat by Pulse 96 95 94 Oximetry 11/26/21 11/26/21 11/26/21 09:31 10:01 10:10 Pulse Rate 92 H 96 H 93 H Pulse Rate [ Throughout] Respiratory 15 17 16 Rate Respiratory Rate [ Throughout] Blood Pressure 136/87 125/87 125/87 O2 Sat by Pulse 96 96 96 Oximetry 11/26/21 11/26/21 11/26/21 10:11 10:20 10:30 Pulse Rate 88 90 91 H Pulse Rate [ Throughout] Respiratory 16 16 20 Rate Respiratory Rate [ Throughout] Blood Pressure 125/87 121/86 121/86 O2 Sat by Pulse 96 94 96 Oximetry 11/26/21 10:40 Pulse Rate 106 H Pulse Rate [ Throughout] Respiratory 21 Rate Respiratory Rate [ Throughout] Blood Pressure 120/90 O2 Sat by Pulse 97 Oximetry - Reevaluation(s) Reevaluation #1: 11/26/21 05:37 Differential diagnosis, including but limited to: Bronchitis, pneumonia, pneumothorax, COPD exacerbation Assessment and plan: 66-year-old gentleman with probable COPD exacerbation, requiring initiation of BiPAP, steroids, magnesium, Atrovent, and albuterol. He is very anxious, he will be given a trial dose of midazolam. Laboratory studies, EKG, chest x-ray ordered and pending. Appropriate medications have been ordered. Patient is agreeable to admission hospitalization. Care be transferred to the oncoming provider to follow-up on the aforementioned diagnostics, and arrange for admission to the hospital physician/team once initial diagnostics have resulted. 11/26/21 05:58 Much improved on BiPAP. Midazolam canceled. Laboratory studies pending. ED Medical Decision Making - Lab Data Result diagrams: 11/26/21 05:35 11/26/21 05:35 Vital Signs (72 hours) 11/26/21 11/26/21 05:27 05:31 Pulse Rate 131 H 128 H Respiratory 28 H Rate Blood Pressure 134/89 O2 Sat by Pulse 91 100 Oximetry Lab Results 11/26/21 11/26/21 11/26/21 Range/Units 05:35 05:35 05:35 WBC 8.7 (4.5-11.0) K/mm3 RBC 4.60 (3.65-5.03) M/mm3 Hgb 15.1 (11.8-15.2) gm/dl Hct 44.5 (35.5-45.6) % MCV 97 H (84-94) fl MCH 33 H (28-32) pg MCHC 34 (32-34) % RDW 12.5 L (13.2-15.2) % Plt Count 164 (140-440) K/mm3 Eos % (Auto) Talent Director Add Manual Diff Complete Total Counted 100 Seg Neuts % (Manual) 51.0 (40.0-70.0) % Band Neutrophils % 0 % Lymphocytes % (Manual) 29.0 (13.4-35.0) % Reactive Lymphs % (Man) 0 % Monocytes % (Manual) 5.0 (0.0-7.3) % Eosinophils % (Manual) 15.0 H (0.0-4.3) % Basophils % (Manual) 0 (0.0-1.8) % Metamyelocytes % 0 % Myelocytes % 0 % Promyelocytes % 0 % Blast Cells % 0 % Nucleated RBC % Not Reportable Seg Neutrophils # Man 4.4 (1.8-7.7) K/mm3 Band Neutrophils # 0.0 K/mm3 Lymphocytes # (Manual) 2.5 (1.2-5.4) K/mm3 Abs React Lymphs (Man) 0.0 K/mm3 Monocytes # (Manual) 0.4 (0.0-0.8) K/mm3 Eosinophils # (Manual) 1.3 H (0.0-0.4) K/mm3 Basophils # (Manual) 0.0 (0.0-0.1) K/mm3 Metamyelocytes # 0.0 K/mm3 Myelocytes # 0.0 K/mm3 Promyelocytes # 0.0 K/mm3 Blast Cells # 0.0 K/mm3 WBC Morphology Not Reportable Hypersegmented Neuts Not Reportable Hyposegmented Neuts Not Reportable Hypogranular Neuts Not Reportable Smudge Cells Not Reportable Toxic Granulation Not Reportable Toxic Vacuolation Not Reportable Dohle Bodies Not Reportable Pelger-Huet Anomaly Not Reportable Martha Rods Not Reportable Platelet Estimate Consistent w auto Clumped Platelets Not Reportable Plt Clumps, EDTA Not Reportable Large Platelets Not Reportable Giant Platelets Not Reportable Platelet Satelliting Not Reportable Plt Morphology Comment Not Reportable RBC Morphology Normal Dimorphic RBCs Not Reportable Polychromasia Not Reportable Hypochromasia Not Reportable Poikilocytosis Not Reportable Anisocytosis Not Reportable Microcytosis Not Reportable Macrocytosis Not Reportable Spherocytes Not Reportable Pappenheimer Bodies Not Reportable Sickle Cells Not Reportable Target Cells Not Reportable Tear Drop Cells Not Reportable Ovalocytes Not Reportable Helmet Cells Not Reportable [place] Bodies Not Reportable [place]inder Rings Not Reportable Serena Cells Not Reportable Bite Cells Not Reportable Crenated Cell Not Reportable Elliptocytes Not Reportable Acanthocytes (Spur) Not Reportable Rouleaux Not Reportable Hemoglobin C Crystals Not Reportable Schistocytes Not Reportable Malaria parasites Not Reportable Aditya Bodies Not Reportable Hem Pathologist Commnt No PT 13.2 (12.2-14.9) Sec. INR 0.90 (0.87-1.13) Sodium 145 (137-145) mmol/L Potassium 3.9 (3.6-5.0) mmol/L Chloride 106.9 (98-107) mmol/L Carbon Dioxide 24 (22-30) mmol/L Anion Gap 18 mmol/L BUN 10 (9-20) mg/dL Creatinine 0.8 (0.8-1.3) mg/dL Estimated GFR > 60 ml/min BUN/Creatinine Ratio 13 % Glucose 114 H (75-100) mg/dL Calcium 9.7 (8.4-10.2) mg/dL Magnesium (1.7-2.3) mg/dL Total Bilirubin 0.60 (0.1-1.2) mg/dL AST 94 H (5-40) units/L ALT 124 H (7-56) units/L Alkaline Phosphatase 50 (35-129) units/L Total Creatine Kinase (55-170) units/L Troponin T (0.00-0.029) ng/mL Total Protein 7.5 (6.3-8.2) g/dL Albumin 3.8 L (3.9-5) g/dL Albumin/Globulin Ratio 1.0 % 11/26/21 Range/Units 05:35 WBC (4.5-11.0) K/mm3 RBC (3.65-5.03) M/mm3 Hgb (11.8-15.2) gm/dl Hct (35.5-45.6) % MCV (84-94) fl MCH (28-32) pg MCHC (32-34) % RDW (13.2-15.2) % Plt Count (140-440) K/mm3 Eos % (Auto) Add Manual Diff Total Counted Seg Neuts % (Manual) (40.0-70.0) % Band Neutrophils % % Lymphocytes % (Manual) (13.4-35.0) % Reactive Lymphs % (Man) % Monocytes % (Manual) (0.0-7.3) % Eosinophils % (Manual) (0.0-4.3) % Basophils % (Manual) (0.0-1.8) % Metamyelocytes % % Myelocytes % % Promyelocytes % % Blast Cells % % Nucleated RBC % Seg Neutrophils # Man (1.8-7.7) K/mm3 Band Neutrophils # K/mm3 Lymphocytes # (Manual) (1.2-5.4) K/mm3 Abs React Lymphs (Man) K/mm3 Monocytes # (Manual) (0.0-0.8) K/mm3 Eosinophils # (Manual) (0.0-0.4) K/mm3 Basophils # (Manual) (0.0-0.1) K/mm3 Metamyelocytes # K/mm3 Myelocytes # K/mm3 Promyelocytes # K/mm3 Blast Cells # K/mm3 WBC Morphology Hypersegmented Neuts Hyposegmented Neuts Hypogranular Neuts Smudge Cells Toxic Granulation Toxic Vacuolation Dohle Bodies Pelger-Huet Anomaly Martha Rods Platelet Estimate Clumped Platelets Plt Clumps, EDTA Large Platelets Giant Platelets Platelet Satelliting Plt Morphology Comment RBC Morphology Dimorphic RBCs Polychromasia Hypochromasia Poikilocytosis Anisocytosis Microcytosis Macrocytosis Spherocytes Pappenheimer Bodies Sickle Cells Target Cells Tear Drop Cells Ovalocytes Helmet Cells [place]ortense Bodies Winder Rings [place] Cells Bite Cells Crenated Cell Elliptocytes Acanthocytes (Spur) Rouleaux Hemoglobin C Crystals Schistocytes Malaria parasites Aditya Bodies Hem Pathologist Commnt PT (12.2-14.9) Sec. INR (0.87-1.13) Sodium (137-145) mmol/L Potassium (3.6-5.0) mmol/L Chloride (98-107) mmol/L Carbon Dioxide (22-30) mmol/L Anion Gap mmol/L BUN (9-20) mg/dL Creatinine (0.8-1.3) mg/dL Estimated GFR ml/min BUN/Creatinine Ratio % Glucose (75-100) mg/dL Calcium (8.4-10.2) mg/dL Magnesium 2.10 (1.7-2.3) mg/dL Total Bilirubin (0.1-1.2) mg/dL AST (5-40) units/L ALT (7-56) units/L Alkaline Phosphatase (35-129) units/L Total Creatine Kinase 97 (55-170) units/L Troponin T < 0.010 (0.00-0.029) ng/mL Total Protein (6.3-8.2) g/dL Albumin (3.9-5) g/dL Albumin/Globulin Ratio % Vital Signs 11/26/21 11/26/21 11/26/21 05:27 05:31 05:49 Pulse Rate 131 H 128 H Pulse Rate [ 98 H Throughout] Respiratory 28 H Rate Respiratory 26 H Rate [ Throughout] Blood Pressure 134/89 O2 Sat by Pulse 91 100 Oximetry 11/26/21 11/26/21 11/26/21 05:52 06:01 06:31 Pulse Rate 93 H 89 83 Pulse Rate [ Throughout] Respiratory 21 15 21 Rate Respiratory Rate [ Throughout] Blood Pressure 108/73 102/63 126/88 O2 Sat by Pulse 99 98 97 Oximetry 11/26/21 11/26/21 11/26/21 07:01 07:06 07:31 Pulse Rate 86 87 88 Pulse Rate [ Throughout] Respiratory 19 18 15 Rate Respiratory Rate [ Throughout] Blood Pressure 129/79 129/79 125/83 O2 Sat by Pulse 98 96 98 Oximetry 11/26/21 11/26/21 11/26/21 08:01 08:31 09:01 Pulse Rate 83 96 H 89 Pulse Rate [ Throughout] Respiratory 16 18 16 Rate Respiratory Rate [ Throughout] Blood Pressure 113/68 133/79 127/79 O2 Sat by Pulse 96 95 94 Oximetry 11/26/21 11/26/21 11/26/21 09:31 10:01 10:10 Pulse Rate 92 H 96 H 93 H Pulse Rate [ Throughout] Respiratory 15 17 16 Rate Respiratory Rate [ Throughout] Blood Pressure 136/87 125/87 125/87 O2 Sat by Pulse 96 96 96 Oximetry 11/26/21 11/26/21 11/26/21 10:11 10:20 10:30 Pulse Rate 88 90 91 H Pulse Rate [ Throughout] Respiratory 16 16 20 Rate Respiratory Rate [ Throughout] Blood Pressure 125/87 121/86 121/86 O2 Sat by Pulse 96 94 96 Oximetry 11/26/21 10:40 Pulse Rate 106 H Pulse Rate [ Throughout] Respiratory 21 Rate Respiratory Rate [ Throughout] Blood Pressure 120/90 O2 Sat by Pulse 97 Oximetry - EKG Data -: EKG Interpreted by Me EKG shows normal: sinus rhythm Rate: tachycardia - EKG Data 11/26/21 05:38 The EKG is interpreted at 05: 34 Sinus rhythm, tachycardia, rate 103 bpm. Normal axis, QTC 4 4 1 ms, with motion artifact. Abnormal EKG. No STEMI - Radiology Data Radiology results: pending, image reviewed interpreted by me: 1 view of the chest, portable x-ray, interpreted by myself, shows no pneumothorax, clear lungs, normal mediastinum, no infiltrate. Critical Care Time: Yes Critical care time in (mins) excluding proc time.: 45 Critical care attestation.: If time is entered above; I have spent that time in minutes in the direct care of this critically ill patient, excluding procedure time. ED Disposition Clinical Impression: COPD with acute exacerbation Disposition: 09 ADMITTED INPATIENT Is pt being admited?: Yes Does the pt Need Aspirin: No Condition: Serious
[2021-11-26 05:51] LABS: Hematocrit 44.5 % (35.5-45.6); Hemoglobin 15.1 gm/dl (11.8-15.2); Mean Corpuscular HGB Conc 34 % (32-34); Mean Corpuscular Volume 97 fl (84-94); Platelet Count 164 K/mm3 (140-440); Red Cell Distribution Width 12.5 % (13.2-15.2)
--- NOTE | 2021-11-26 05:56 | XRay Report ---
XR chest 1V ap INDICATION / CLINICAL INFORMATION: Dyspnea. COMPARISON: 11/13/2017 FINDINGS: SUPPORT DEVICES: None. HEART /PULMONARY VASCULATURE: No significant abnormality. LUNGS / PLEURA: No significant pulmonary or pleural abnormality. No pneumothorax. IMPRESSION: 1. No acute findings. Signer Name: Christoph Wise MD Signed: 11/26/2021 5:52 AM Workstation Name: [id number]
[2021-11-26 05:59] LABS: INR 0.9 (0.87-1.13)
[2021-11-26 06:15] LABS: Alanine Aminotransferase 124 units/L (7-56); Albumin 3.8 g/dL (3.9-5); BUN/Creatinine Ratio 13; Blood Urea Nitrogen 10 mg/dL (9-20); Calcium 9.7 mg/dL (8.4-10.2); Hemolysis Index 17
[2021-11-26 07:09] LABS: Basophils % (Manual) 0 % (0.0-1.8); Total Cells Counted 100
[2021-11-26 07:10] LABS: Platelet Estimate Consistent w Auto; RBC Morphology Normal
--- NOTE | 2021-11-26 07:30 | Emergency Department Report ---
Blank Doc - Documentation Documentation: [id number] assumed care of this patient. After the nebulizer, patient was feeling better. He looked more comfortable. He was still on BiPAP and was maintained on such. Admission was indicated. The hospitalist was notified who agreed to admit.
[2021-11-26] MEDS ORDERED: MORPHINE 4 MG/1 ML INJ IV PRN (07:55)
[2021-11-26] MEDS ORDERED: oxyCODONE /ACETAMINOPHEN 5-325MG TAB PO PRN (08:30)
[2021-11-26] MEDS ORDERED: ONDANSETRON 4 MG/2 ML INJ IV PRN (08:30)
[2021-11-26] MEDS ORDERED: ACETAMINOPHEN 325 MG TAB PO PRN (08:30)
[2021-11-26] MEDS ORDERED: MORPHINE 2 MG/1 ML INJ IV PRN (09:00)
[2021-11-26] MEDS: IPRATROPIUM/ALBUTEROL SULFATE 3 ML AMPUL.NEB IH SCH ×2 (09:14→15:16)
[2021-11-26] MEDS ORDERED: DOCUSATE SODIUM 100 MG CAP PO PRN (10:00)
[2021-11-26] MEDS ORDERED: ENOXAPARIN 30 MG/0.3 ML INJ SUB-Q SCH (10:00)
--- NOTE | 2021-11-26 10:12 | Electrocardiograph Report ---
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
--- NOTE | 2021-11-26 11:33 | History and Physical Report ---
History of Present Illness Date of examination: 11/26/21 Date of admission: 11/26/21 07:55 Chief complaint: Shortness of breath History of present illness: Patient is a 66-year-old male past medical history of COPD (former smoker), anxiety, history of parapneumonic pleural effusion, asthma, and obesity who presented for worsening shortness of breath in the setting of productive sputum for approximately 3-4 weeks. The patient endorses using his CPAP at night and during his inhaler as directed. 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 The patient describes violent coughing that sometimes results in him having dizziness in addition to pleuritic chest pain with his coughing. His sputum is yellow in color but has been improving. He denies any fevers, chills, chest pain, peripheral swelling, nausea, vomiting, or confusion/altered mental status. In the ED the patient was found to be hypoxic and utilizing accessory muscles. Chest x-ray revealed a mildly enlarged cardiac silhouette but was negative for consolidations, interstitial infiltrates, or pleural effusions. The patient was started on BiPAP (IPAP 14, EPAP 8) and a breathing treatment that significantly improved his respiratory status. The patient is being admitted for management of acute hypoxic respiratory failure in the setting of acute on chronic COPD exacerbation. Past History Past Medical History: COPD, other (Anxiety, asthma, obesity.) Past Surgical History: No surgical history Social history: single, Lives alone, full code Family history: no significant family history Medications and Allergies Allergies Allergy/AdvReac Type Severity Reaction Status Date / Time No Known Allergies Allergy Verified 04/15/15 02:50 Home Medications Medication Instructions Recorded Confirmed Last Taken Type ALPRAZolam [Xanax TAB] 1 mg PO BID 04/14/15 11/13/17 11/12/17 History oxyCODONE ER [oxyCONTIN ER] 30 mg PO 5XD 04/14/15 11/13/17 11/12/17 History 30 mg traZODone [Desyrel] 4 mg PO DAILY 04/14/15 11/13/17 11/11/17 History 4 mg Albuterol Mdi (or & Nicu Only) 2 puff IH QID PRN #1 inhalation 04/15/15 11/13/17 11/11/17 Rx [ProAir HFA Inhaler] Fluticasone [Flonase] 1 spray NS QDAY #1 bottle 11/10/16 11/13/17 10/25/17 Rx Oseltamivir [Tamiflu] 75 mg PO BID #8 capsule 11/15/17 Unknown Rx levoFLOXacin [Levaquin] 750 mg PO QDAY #5 tablet 11/15/17 Unknown Rx Active Meds: Active Medications Acetaminophen (Acetaminophen 325 Mg Tab) 650 mg PO Q4H PRN PRN Reason: Pain MILD(1-3)/Fever >100.5/HESTER Albuterol/Ipratropium (Ipratropium/Albuterol Sulfate 3 Ml Ampul.Neb) 1 ampul IH Q6HRT [facility] Last Admin: 11/26/21 09:14 Dose: 1 ampul Docusate Sodium (Docusate Sodium 100 Mg Cap) 100 mg PO BID PRN PRN Reason: Constipation Enoxaparin Sodium (Enoxaparin 40 Mg/0.4 Ml Inj) 40 mg SUB-Q QDAY@1000 MAGDA Ceftriaxone Sodium (Rocephin/Ns 1 Gm/50 Ml) 1 gm in 50 mls @ 100 mls/hr IV Q24H [facility]; Protocol Stop: 12/01/21 05:59 Morphine Sulfate (Morphine 2 Mg/1 Ml Inj) 2 mg IV Q4H PRN PRN Reason: Pain , Severe (7-10) Ondansetron HCl (Ondansetron 4 Mg/2 Ml Inj) 4 mg IV Q8H PRN PRN Reason: Nausea And Vomiting Oxycodone/Acetaminophen (Oxycodone /Acetaminophen 5-325mg Tab) 1 tab PO Q6H PRN PRN Reason: Pain, Moderate (4-6) Prednisone (Prednisone 20 Mg Tab) 40 mg PO DAILY [facility] Stop: 11/30/21 10:01 Sodium Chloride (Sodium Chloride 0.9% 10 Ml Flush Syringe) 10 ml IV BID [facility] Last Admin: 11/26/21 10:02 Dose: 10 ml Sodium Chloride (Sodium Chloride 0.9% 10 Ml Flush Syringe) 10 ml IV PRN PRN PRN Reason: LINE FLUSH Exam - Constitutional Vitals: Temp Pulse Resp BP Pulse Ox 88 16 125/87 96 11/26/21 10:11 11/26/21 10:11 11/26/21 10:11 11/26/21 11:15 General appearance: Present: mild distress, obese, other (BiPAP on face) - EENT Eyes: Present: PERRL, EOM intact ENT: hearing intact, clear oral mucosa, dentition normal - Neck Neck: Present: supple, normal ROM - Respiratory Respiratory effort: normal Respiratory: bilateral: diminished - Cardiovascular Rhythm: regular Heart Sounds: Present: S1 & S2 - Extremities Extremities: no ischemia, pulses intact, pulses symmetrical, No edema, normal temperature, normal color, Full ROM Peripheral Pulses: within normal limits - Abdominal General gastrointestinal: Present: soft, non-tender, non-distended, normal bowel sounds Male genitourinary: Present: deferred - Rectal Rectal Exam: deferred - Integumentary Integumentary: Present: clear, warm, dry - Musculoskeletal Musculoskeletal: strength equal bilaterally - Psychiatric Psychiatric: appropriate mood/affect, intact judgment & insight, memory intact, cooperative - Neurologic Neurologic: CNII-XII intact, moves all extremities - Allied Health Allied health notes reviewed: nursing HEART Score - HEART Score Troponin: Troponin T < 0.010 ng/mL (0.00-0.029) 11/26/21 05:35 Results - Labs CBC & Chem 7: 11/26/21 05:35 11/26/21 05:35 Labs: Laboratory Last Values WBC 8.7 K/mm3 (4.5-11.0) 11/26/21 05:35 RBC 4.60 M/mm3 (3.65-5.03) 11/26/21 05:35 Hgb 15.1 gm/dl (11.8-15.2) 11/26/21 05:35 Hct 44.5 % (35.5-45.6) 11/26/21 05:35 MCV 97 fl (84-94) H 11/26/21 05:35 MCH 33 pg (28-32) H 11/26/21 05:35 MCHC 34 % (32-34) 11/26/21 05:35 RDW 12.5 % (13.2-15.2) L 11/26/21 05:35 Plt Count 164 K/mm3 (140-440) 11/26/21 05:35 Eos % (Auto) Senior Radiation Protection Technician 11/26/21 05:35 Add Manual Diff Complete 11/26/21 05:35 Total Counted 100 11/26/21 05:35 Seg Neuts % (Manual) 51.0 % (40.0-70.0) 11/26/21 05:35 Band Neutrophils % 0 % 11/26/21 05:35 Lymphocytes % (Manual) 29.0 % (13.4-35.0) 11/26/21 05:35 Reactive Lymphs % (Man) 0 % 11/26/21 05:35 Monocytes % (Manual) 5.0 % (0.0-7.3) 11/26/21 05:35 Eosinophils % (Manual) 15.0 % (0.0-4.3) H 11/26/21 05:35 Basophils % (Manual) 0 % (0.0-1.8) 11/26/21 05:35 Metamyelocytes % 0 % 11/26/21 05:35 Myelocytes % 0 % 11/26/21 05:35 Promyelocytes % 0 % 11/26/21 05:35 Blast Cells % 0 % 11/26/21 05:35 Nucleated RBC % Not Reportable 11/26/21 05:35 Seg Neutrophils # Man 4.4 K/mm3 (1.8-7.7) 11/26/21 05:35 Band Neutrophils # 0.0 K/mm3 11/26/21 05:35 Lymphocytes # (Manual) 2.5 K/mm3 (1.2-5.4) 11/26/21 05:35 Abs React Lymphs (Man) 0.0 K/mm3 11/26/21 05:35 Monocytes # (Manual) 0.4 K/mm3 (0.0-0.8) 11/26/21 05:35 Eosinophils # (Manual) 1.3 K/mm3 (0.0-0.4) H 11/26/21 05:35 Basophils # (Manual) 0.0 K/mm3 (0.0-0.1) 11/26/21 05:35 Metamyelocytes # 0.0 K/mm3 11/26/21 05:35 Myelocytes # 0.0 K/mm3 11/26/21 05:35 Promyelocytes # 0.0 K/mm3 11/26/21 05:35 Blast Cells # 0.0 K/mm3 11/26/21 05:35 WBC Morphology Not Reportable 11/26/21 05:35 Hypersegmented Neuts Not Reportable 11/26/21 05:35 Hyposegmented Neuts Not Reportable 11/26/21 05:35 Hypogranular Neuts Not Reportable 11/26/21 05:35 Smudge Cells Not Reportable 11/26/21 05:35 Toxic Granulation Not Reportable 11/26/21 05:35 Toxic Vacuolation Not Reportable 11/26/21 05:35 Dohle Bodies Not Reportable 11/26/21 05:35 Pelger-Huet Anomaly Not Reportable 11/26/21 05:35 Martha Rods Not Reportable 11/26/21 05:35 Platelet Estimate Consistent w auto 11/26/21 05:35 Clumped Platelets Not Reportable 11/26/21 05:35 Plt Clumps, EDTA Not Reportable 11/26/21 05:35 Large Platelets Not Reportable 11/26/21 05:35 Giant Platelets Not Reportable 11/26/21 05:35 Platelet Satelliting Not Reportable 11/26/21 05:35 Plt Morphology Comment Not Reportable 11/26/21 05:35 RBC Morphology Normal 11/26/21 05:35 Dimorphic RBCs Not Reportable 11/26/21 05:35 Polychromasia Not Reportable 11/26/21 05:35 Hypochromasia Not Reportable 11/26/21 05:35 Poikilocytosis Not Reportable 11/26/21 05:35 Anisocytosis Not Reportable 11/26/21 05:35 Microcytosis Not Reportable 11/26/21 05:35 Macrocytosis Not Reportable 11/26/21 05:35 Spherocytes Not Reportable 11/26/21 05:35 Pappenheimer Bodies Not Reportable 11/26/21 05:35 Sickle Cells Not Reportable 11/26/21 05:35 Target Cells Not Reportable 11/26/21 05:35 Tear Drop Cells Not Reportable 11/26/21 05:35 Ovalocytes Not Reportable 11/26/21 05:35 Helmet Cells Not Reportable 11/26/21 05:35 [place] Bodies Not Reportable 11/26/21 05:35 [place] Rings Not Reportable 11/26/21 05:35 [place] Cells Not Reportable 11/26/21 05:35 Bite Cells Not Reportable 11/26/21 05:35 Crenated Cell Not Reportable 11/26/21 05:35 Elliptocytes Not Reportable 11/26/21 05:35 Acanthocytes (Spur) Not Reportable 11/26/21 05:35 Rouleaux Not Reportable 11/26/21 05:35 Hemoglobin C Crystals Not Reportable 11/26/21 05:35 Schistocytes Not Reportable 11/26/21 05:35 Malaria parasites Not Reportable 11/26/21 05:35 Aditya Bodies Not Reportable 11/26/21 05:35 Hem Pathologist Commnt No 11/26/21 05:35 PT 13.2 Sec. (12.2-14.9) 11/26/21 05:35 INR 0.90 (0.87-1.13) 11/26/21 05:35 ABG pH 7.360 (7.320-7.450) 11/26/21 08:55 POC ABG pCO2 44.9 mmHg (32.0-48.0) 11/26/21 08:55 POC ABG pO2 62.8 mmHg (83-108) L 11/26/21 08:55 POC ABG HCO3 24.8 11/26/21 08:55 ABG O2 Saturation 93.0 (0-100) 11/26/21 08:55 POC ABG Base Excess -0.9 11/26/21 08:55 ABG Hemoglobin 15.8 (12.0-17.5) 11/26/21 08:55 ABG Oxyhemoglobin 91.7 (94-98) L 11/26/21 08:55 ABG Methemoglobin 0.3 (0.0-1.5) 11/26/21 08:55 Carboxyhemoglobin 1.1 (0.5-1.5) 11/26/21 08:55 FiO2 % 32.0 11/26/21 08:55 Sodium 145 mmol/L (137-145) 11/26/21 05:35 Potassium 3.9 mmol/L (3.6-5.0) 11/26/21 05:35 Chloride 106.9 mmol/L (98-107) 11/26/21 05:35 Carbon Dioxide 24 mmol/L (22-30) 11/26/21 05:35 Anion Gap 18 mmol/L 11/26/21 05:35 BUN 10 mg/dL (9-20) 11/26/21 05:35 Creatinine 0.8 mg/dL (0.8-1.3) 11/26/21 05:35 Estimated GFR > 60 ml/min 11/26/21 05:35 BUN/Creatinine Ratio 13 % 11/26/21 05:35 Glucose 114 mg/dL (75-100) H 11/26/21 05:35 Calcium 9.7 mg/dL (8.4-10.2) 11/26/21 05:35 Magnesium 2.10 mg/dL (1.7-2.3) 11/26/21 05:35 Total Bilirubin 0.60 mg/dL (0.1-1.2) 11/26/21 05:35 AST 94 units/L (5-40) H 11/26/21 05:35 ALT 124 units/L (7-56) H 11/26/21 05:35 Alkaline Phosphatase 50 units/L (35-129) 11/26/21 05:35 Total Creatine Kinase 97 units/L (55-170) 11/26/21 05:35 Troponin T < 0.010 ng/mL (0.00-0.029) 11/26/21 05:35 Total Protein 7.5 g/dL (6.3-8.2) 11/26/21 05:35 Albumin 3.8 g/dL (3.9-5) L 11/26/21 05:35 Albumin/Globulin Ratio 1.0 % 11/26/21 05:35 Dutton/IV: Voiding Method Urinal Assessment and Plan Assessment and plan: Patient is a 66-year-old male past medical history of COPD (former smoker), anxiety, history of parapneumonic pleural effusion, asthma, and obesity who presented for worsening shortness of breath in the setting of productive sputum for approximately 3-4 weeks. The patient is being admitted for management of acute hypoxic respiratory failure in the setting of acute on chronic COPD exacerbation. #Acute on chronic COPD exacerbation - etiology: Infectiouspending further work-up - home medications: Albuterol inhaler; unable to provide additional information - currently requiring BiPAP supplemental O2; wean as tolerated and continue scheduled DuoNebs - continue Rocephin 1 g every 24 for a total of 4 days (completes on 11/29/2021) Pending coronavirus PCR, influenza a/B, sputum culture Chest x-ray revealing mildly enlarged cardiac silhouette but unremarkable for consolidations, interstitial infiltrates, pleural effusion. Low clinical suspicion for community-acquired pneumonia. Continue to monitor #Asthma Continue albuterol nebs every 4 hours as needed #Anxiety No current home medications known. Continue to monitor. #Obesity #Weight loss counseling #Exercise counseling - BMI 35 - Counseled patient on the importance of weight loss, incorporating exercise, and dietary changes (lean meats, fresh fruits and vegetables, and water intake). Patient expresses understanding. - Time: +15 min #Advanced care planning -Disease education conducted, care plan discussed, diagnoses discussed, progn osis discussed, and patient acknowledges understanding with care plan -Time: +30 min Advance Directives: No VTE prophylaxis?: Chemical Plan of care discussed with patient/family: Yes
[2021-11-26] MEDS: ENOXAPARIN 40 MG/0.4 ML INJ SUB-Q SCH (11:52)
[2021-11-27] MEDS: cefTRIAXone/NS 1 GM/50 ML 1 GM/50 ML BAG IV SCH (06:58)
[2021-11-27 07:35] LABS: Basophils % (Auto) 0.5 % (0.0-1.8); Eosinophils # (Auto) 0.3 K/mm3 (0.0-0.4); Hematocrit 45.2 % (35.5-45.6); Hemoglobin 15.3 gm/dl (11.8-15.2); Lymphocytes # (Auto) 3.3 K/mm3 (1.2-5.4); Lymphocytes % (Auto) 32.6 % (13.4-35.0); Mean Corpuscular HGB Conc 34 % (32-34); Mean Corpuscular Volume 97 fl (84-94); Monocytes # (Auto) 0.7 K/mm3 (0.0-0.8); Monocytes % (Auto) 6.8 % (0.0-7.3); Platelet Count 192 K/mm3 (140-440); Red Blood Count 4.68 M/mm3 (3.65-5.03); Red Cell Distribution Width 12.4 % (13.2-15.2)
--- NOTE | 2021-11-27 07:40 | Progress Note ---
Assessment and Plan Assessment and plan: Patient is a 66-year-old male past medical history of COPD (former smoker), anxiety, history of parapneumonic pleural effusion, asthma, and obesity who presented for worsening shortness of breath in the setting of productive sputum for approximately 3-4 weeks. The patient is being admitted for management of acute hypoxic respiratory failure in the setting of acute on chronic COPD exacerbation. #Acute on chronic COPD exacerbationimproving - etiology: Infectiouspending further work-up - home medications: Albuterol inhaler; unable to provide additional information - currently requiring 3-4 L nasal cannula supplemental O2; wean as tolerated and continue scheduled DuoNebs - continue Rocephin 1 g every 24 for a total of 4 days (completes on 11/29/2021) Pending coronavirus PCR, influenza a/B, sputum culture Chest x-ray revealing mildly enlarged cardiac silhouette but unremarkable for consolidations, interstitial infiltrates, pleural effusion. Low clinical suspicion for community-acquired pneumonia. Continue to monitor #Insomnia Starting melatonin 10 mg nightly and Seroquel 12.5 mg nightly. Continue to monitor. #Elevated blood pressure Patient denies any history of hypertension Continue to monitor. Consider starting calcium channel makenzie if blood pressures continue to remain elevated. #Asthma Continue albuterol nebs every 4 hours as needed #Anxiety No current home medications known. Continue to monitor. #Obesity #Weight loss counseling #Exercise counseling - BMI 35 - Counseled patient on the importance of weight loss, incorporating exercise, and dietary changes (lean meats, fresh fruits and vegetables, and water intake). Patient expresses understanding. - Time: +15 min #Advanced care planning -Disease education conducted, care plan discussed, diagnoses discussed, prognosis discussed, and patient acknowledges understanding with care plan -Time: +30 min Disposition Plan: Continue medical management Total Time Spent with Patient (Minutes): 30 minutes History Interval history: No acute events overnight. Hospitalist Physical - Constitutional Vitals: Temp Pulse Resp BP Pulse Ox 98.2 F 136 H 18 139/97 89 11/27/21 05:42 11/27/21 05:42 11/27/21 05:42 11/27/21 05:42 11/27/21 05:42 General appearance: Present: no acute distress, obese, other (BiPAP on face) - EENT Eyes: Present: PERRL, EOM intact ENT: hearing intact, clear oral mucosa, dentition normal - Neck Neck: Present: supple, normal ROM - Respiratory Respiratory effort: normal Respiratory: bilateral: diminished (On 3-4 L nasal cannula) - Cardiovascular Rhythm: regular Heart Sounds: Present: S1 & S2 - Extremities Extremities: no ischemia, pulses intact, pulses symmetrical, No edema, normal temperature, normal color, Full ROM Peripheral Pulses: within normal limits - Abdominal General gastrointestinal: soft, non-tender, non-distended, normal bowel sounds - Integumentary Integumentary: Present: clear, warm, dry - Psychiatric Psychiatric: appropriate mood/affect, memory intact, cooperative - Neurologic Neurologic: CNII-XII intact, moves all extremities - Allied Health Allied health notes reviewed: nursing HEART Score - HEART Score Troponin: Troponin T < 0.010 ng/mL (0.00-0.029) 11/26/21 05:35 Results - Labs CBC & Chem 7: 11/27/21 06:00 11/27/21 06:00 Labs: Laboratory Last Values WBC 10.0 K/mm3 (4.5-11.0) 11/27/21 06:00 RBC 4.68 M/mm3 (3.65-5.03) 11/27/21 06:00 Hgb 15.3 gm/dl (11.8-15.2) H 11/27/21 06:00 Hct 45.2 % (35.5-45.6) 11/27/21 06:00 MCV 97 fl (84-94) H 11/27/21 06:00 MCH 33 pg (28-32) H 11/27/21 06:00 MCHC 34 % (32-34) 11/27/21 06:00 RDW 12.4 % (13.2-15.2) L 11/27/21 06:00 Plt Count 192 K/mm3 (140-440) 11/27/21 06:00 Lymph % (Auto) 32.6 % (13.4-35.0) 11/27/21 06:00 [place] % (Auto) 6.8 % (0.0-7.3) 11/27/21 06:00 Eos % (Auto) 3.0 % (0.0-4.3) 11/27/21 06:00 Baso % (Auto) 0.5 % (0.0-1.8) 11/27/21 06:00 Lymph # (Auto) 3.3 K/mm3 (1.2-5.4) 11/27/21 06:00 Caroline # (Auto) 0.7 K/mm3 (0.0-0.8) 11/27/21 06:00 Eos # (Auto) 0.3 K/mm3 (0.0-0.4) 11/27/21 06:00 Baso # (Auto) 0.0 K/mm3 (0.0-0.1) 11/27/21 06:00 Add Manual Diff Complete 11/26/21 05:35 Total Counted 100 11/26/21 05:35 Seg Neutrophils % 57.1 % (40.0-70.0) 11/27/21 06:00 Seg Neuts % (Manual) 51.0 % (40.0-70.0) 11/26/21 05:35 Band Neutrophils % 0 % 11/26/21 05:35 Lymphocytes % (Manual) 29.0 % (13.4-35.0) 11/26/21 05:35 Reactive Lymphs % (Man) 0 % 11/26/21 05:35 Monocytes % (Manual) 5.0 % (0.0-7.3) 11/26/21 05:35 Eosinophils % (Manual) 15.0 % (0.0-4.3) H 11/26/21 05:35 Basophils % (Manual) 0 % (0.0-1.8) 11/26/21 05:35 Metamyelocytes % 0 % 11/26/21 05:35 Myelocytes % 0 % 11/26/21 05:35 Promyelocytes % 0 % 11/26/21 05:35 Blast Cells % 0 % 11/26/21 05:35 Nucleated RBC % Not Reportable 11/26/21 05:35 Seg Neutrophils # 5.7 K/mm3 (1.8-7.7) 11/27/21 06:00 Seg Neutrophils # Man 4.4 K/mm3 (1.8-7.7) 11/26/21 05:35 Band Neutrophils # 0.0 K/mm3 11/26/21 05:35 Lymphocytes # (Manual) 2.5 K/mm3 (1.2-5.4) 11/26/21 05:35 Abs React Lymphs (Man) 0.0 K/mm3 11/26/21 05:35 Monocytes # (Manual) 0.4 K/mm3 (0.0-0.8) 11/26/21 05:35 Eosinophils # (Manual) 1.3 K/mm3 (0.0-0.4) H 11/26/21 05:35 Basophils # (Manual) 0.0 K/mm3 (0.0-0.1) 11/26/21 05:35 Metamyelocytes # 0.0 K/mm3 11/26/21 05:35 Myelocytes # 0.0 K/mm3 11/26/21 05:35 Promyelocytes # 0.0 K/mm3 11/26/21 05:35 Blast Cells # 0.0 K/mm3 11/26/21 05:35 WBC Morphology Not Reportable 11/26/21 05:35 Hypersegmented Neuts Not Reportable 11/26/21 05:35 Hyposegmented Neuts Not Reportable 11/26/21 05:35 Hypogranular Neuts Not Reportable 11/26/21 05:35 Smudge Cells Not Reportable 11/26/21 05:35 Toxic Granulation Not Reportable 11/26/21 05:35 Toxic Vacuolation Not Reportable 11/26/21 05:35 Dohle Bodies Not Reportable 11/26/21 05:35 Pelger-Huet Anomaly Not Reportable 11/26/21 05:35 Martha Rods Not Reportable 11/26/21 05:35 Platelet Estimate Consistent w auto 11/26/21 05:35 Clumped Platelets Not Reportable 11/26/21 05:35 Plt Clumps, EDTA Not Reportable 11/26/21 05:35 Large Platelets Not Reportable 11/26/21 05:35 Giant Platelets Not Reportable 11/26/21 05:35 Platelet Satelliting Not Reportable 11/26/21 05:35 Plt Morphology Comment Not Reportable 11/26/21 05:35 RBC Morphology Normal 11/26/21 05:35 Dimorphic RBCs Not Reportable 11/26/21 05:35 Polychromasia Not Reportable 11/26/21 05:35 Hypochromasia Not Reportable 11/26/21 05:35 Poikilocytosis Not Reportable 11/26/21 05:35 Anisocytosis Not Reportable 11/26/21 05:35 Microcytosis Not Reportable 11/26/21 05:35 Macrocytosis Not Reportable 11/26/21 05:35 Spherocytes Not Reportable 11/26/21 05:35 Pappenheimer Bodies Not Reportable 11/26/21 05:35 Sickle Cells Not Reportable 11/26/21 05:35 Target Cells Not Reportable 11/26/21 05:35 Tear Drop Cells Not Reportable 11/26/21 05:35 Ovalocytes Not Reportable 11/26/21 05:35 Helmet Cells Not Reportable 11/26/21 05:35 [place] Bodies Not Reportable 11/26/21 05:35 [place] Rings Not Reportable 11/26/21 05:35 [place] Cells Not Reportable 11/26/21 05:35 Bite Cells Not Reportable 11/26/21 05:35 Crenated Cell Not Reportable 11/26/21 05:35 Elliptocytes Not Reportable 11/26/21 05:35 Acanthocytes (Spur) Not Reportable 11/26/21 05:35 Rouleaux Not Reportable 11/26/21 05:35 Hemoglobin C Crystals Not Reportable 11/26/21 05:35 Schistocytes Not Reportable 11/26/21 05:35 Malaria parasites Not Reportable 11/26/21 05:35 Aditya Bodies Not Reportable 11/26/21 05:35 Hem Pathologist Commnt No 11/26/21 05:35 PT 13.2 Sec. (12.2-14.9) 11/26/21 05:35 INR 0.90 (0.87-1.13) 11/26/21 05:35 ABG pH 7.360 (7.320-7.450) 11/26/21 08:55 POC ABG pCO2 44.9 mmHg (32.0-48.0) 11/26/21 08:55 POC ABG pO2 62.8 mmHg (83-108) L 11/26/21 08:55 POC ABG HCO3 24.8 11/26/21 08:55 ABG O2 Saturation 93.0 (0-100) 11/26/21 08:55 POC ABG Base Excess -0.9 11/26/21 08:55 ABG Hemoglobin 15.8 (12.0-17.5) 11/26/21 08:55 ABG Oxyhemoglobin 91.7 (94-98) L 11/26/21 08:55 ABG Methemoglobin 0.3 (0.0-1.5) 11/26/21 08:55 Carboxyhemoglobin 1.1 (0.5-1.5) 11/26/21 08:55 FiO2 % 32.0 11/26/21 08:55 Sodium 145 mmol/L (137-145) 11/26/21 05:35 Potassium 3.9 mmol/L (3.6-5.0) 11/26/21 05:35 Chloride 106.9 mmol/L (98-107) 11/26/21 05:35 Carbon Dioxide 24 mmol/L (22-30) 11/26/21 05:35 Anion Gap 18 mmol/L 11/26/21 05:35 BUN 10 mg/dL (9-20) 11/26/21 05:35 Creatinine 0.8 mg/dL (0.8-1.3) 11/26/21 05:35 Estimated GFR > 60 ml/min 11/26/21 05:35 BUN/Creatinine Ratio 13 % 11/26/21 05:35 Glucose 114 mg/dL (75-100) H 11/26/21 05:35 Calcium 9.7 mg/dL (8.4-10.2) 11/26/21 05:35 Magnesium 2.10 mg/dL (1.7-2.3) 11/26/21 05:35 Total Bilirubin 0.60 mg/dL (0.1-1.2) 11/26/21 05:35 AST 94 units/L (5-40) H 11/26/21 05:35 ALT 124 units/L (7-56) H 11/26/21 05:35 Alkaline Phosphatase 50 units/L (35-129) 11/26/21 05:35 Total Creatine Kinase 97 units/L (55-170) 11/26/21 05:35 Troponin T < 0.010 ng/mL (0.00-0.029) 11/26/21 05:35 Total Protein 7.5 g/dL (6.3-8.2) 11/26/21 05:35 Albumin 3.8 g/dL (3.9-5) L 11/26/21 05:35 Albumin/Globulin Ratio 1.0 % 11/26/21 05:35 Dutton/IV: Voiding Method Toilet Active Medications - Current Medications Current Medications: Generic Name Dose Route Start Last Admin Trade Name Freq PRN Reason Stop Dose Admin Acetaminophen 650 mg 11/26/21 08:30 Acetaminophen 325 Mg Tab PO Q4H PRN Pain MILD(1-3)/Fever >100.5/HESTER Albuterol/Ipratropium 1 ampul 11/26/21 20:00 Ipratropium/Albuterol Sulfate 3 Ml Ampul.Neb IH TIDRT MAGDA Docusate Sodium 100 mg 11/26/21 10:00 Docusate Sodium 100 Mg Cap PO BID PRN Constipation Enoxaparin Sodium 40 mg 11/26/21 10:00 11/26/21 11:52 Enoxaparin 40 Mg/0.4 Ml Inj SUB-Q 40 mg QDAY@1000 MAGDA Administration Ceftriaxone Sodium 1 gm in 50 mls @ 100 mls/hr 11/27/21 06:00 11/27/21 06:58 Rocephin/Ns 1 Gm/50 Ml IV 12/01/21 05:59 100 mls/hr Q24H MAGDA Administration Protocol Morphine Sulfate 2 mg 11/26/21 09:00 11/26/21 20:38 Morphine 2 Mg/1 Ml Inj IV 2 mg Q4H PRN Administration Pain , Severe (7-10) Ondansetron HCl 4 mg 11/26/21 08:30 Ondansetron 4 Mg/2 Ml Inj IV Q8H PRN Nausea And Vomiting Oxycodone/Acetaminophen 1 tab 11/26/21 08:30 Oxycodone /Acetaminophen 5-325mg Tab PO Q6H PRN Pain, Moderate (4-6) Prednisone 40 mg 11/27/21 10:00 Prednisone 20 Mg Tab PO 11/30/21 10:01 DAILY MAGDA Sodium Chloride 10 ml 11/26/21 10:00 11/26/21 23:58 Sodium Chloride 0.9% 10 Ml Flush Syringe IV 10 ml BID MAGDA Administration Sodium Chloride 10 ml 11/26/21 09:00 Sodium Chloride 0.9% 10 Ml Flush Syringe IV PRN PRN LINE FLUSH
[2021-11-27 07:58] LABS: Blood Urea Nitrogen 14 mg/dL (9-20); Calcium 9.4 mg/dL (8.4-10.2); Hemolysis Index 9
[2021-11-27 08:00] LABS: BUN/Creatinine Ratio 20
[2021-11-27] MEDS: IPRATROPIUM/ALBUTEROL SULFATE 3 ML AMPUL.NEB IH SCH ×4 (08:18→22:06)
[2021-11-27] MEDS: predniSONE 20 MG TAB PO SCH (09:35)
[2021-11-27] MEDS: ENOXAPARIN 40 MG/0.4 ML INJ SUB-Q SCH (09:40)
[2021-11-27] MEDS ORDERED: ALPRAZolam 1 MG TAB PO PRN (12:00)
[2021-11-27] MEDS: QUEtiapine 25 MG TAB PO SCH (22:47)
[2021-11-27] MEDS: MELATONIN 5 MG TAB PO SCH (22:47)
[2021-11-28] MEDS: IPRATROPIUM/ALBUTEROL SULFATE 3 ML AMPUL.NEB IH SCH ×4 (04:54→22:36)
[2021-11-28] MEDS: cefTRIAXone/NS 1 GM/50 ML 1 GM/50 ML BAG IV SCH (07:15)
--- NOTE | 2021-11-28 07:26 | Progress Note ---
Assessment and Plan Assessment and plan: Patient is a 66-year-old male past medical history of COPD (former smoker), anxiety, history of parapneumonic pleural effusion, asthma, and obesity who presented for worsening shortness of breath in the setting of productive sputum for approximately 3-4 weeks. The patient is being admitted for management of acute hypoxic respiratory failure in the setting of acute on chronic COPD exacerbation. #Acute on chronic COPD exacerbationimproving - etiology: Infectiouspending further work-up - home medications: Albuterol inhaler; unable to provide additional information - currently requiring 1-2 L nasal cannula supplemental O2; wean as tolerated and continue scheduled DuoNebs - continue Rocephin 1 g every 24 for a total of 4 days (completes on 11/29/2021) Negative coronavirus PCR. Pending influenza a/B, sputum culture Chest x-ray revealing mildly enlarged cardiac silhouette but unremarkable for consolidations, interstitial infiltrates, pleural effusion. Low clinical suspicion for community-acquired pneumonia. Continue to monitor #Insomnia Continue melatonin 10 mg nightly and Seroquel 12.5 mg nightly. Continue to monitor. #Elevated blood pressure Patient denies any history of hypertension Continue to monitor. Consider starting calcium channel makenzie if blood pressures continue to remain elevated. #Asthma Continue albuterol nebs every 4 hours as needed #Anxiety No current home medications known. Continue to monitor. #Obesity #Weight loss counseling #Exercise counseling - BMI 35 - Counseled patient on the importance of weight loss, incorporating exercise, and dietary changes (lean meats, fresh fruits and vegetables, and water intake). Patient expresses understanding. - Time: +15 min #Advanced care planning -Disease education conducted, care plan discussed, diagnoses discussed, prognosis discussed, and patient acknowledges understanding with care plan -Time: +30 min Disposition Plan: Continue medical management Total Time Spent with Patient (Minutes): 30 minutes History Interval history: No acute events overnight. Hospitalist Physical - Constitutional Vitals: Temp Pulse Resp BP Pulse Ox 97.9 F 100 H 20 104/58 92 11/27/21 09:44 11/28/21 04:56 11/28/21 04:56 11/27/21 09:44 11/28/21 04:56 General appearance: Present: no acute distress, obese - EENT Eyes: Present: PERRL, EOM intact ENT: hearing intact, clear oral mucosa, dentition normal - Neck Neck: Present: supple, normal ROM - Respiratory Respiratory effort: normal Respiratory: bilateral: diminished (on 1L nasal cannula) - Cardiovascular Rhythm: regular Heart Sounds: Present: S1 & S2 - Extremities Extremities: no ischemia, pulses intact, pulses symmetrical, No edema, normal temperature, normal color, Full ROM Peripheral Pulses: within normal limits - Abdominal General gastrointestinal: soft, non-tender, non-distended, normal bowel sounds - Integumentary Integumentary: Present: clear, warm, dry - Psychiatric Psychiatric: appropriate mood/affect, intact judgment & insight, memory intact, cooperative - Neurologic Neurologic: CNII-XII intact, moves all extremities - Allied Health Allied health notes reviewed: nursing HEART Score - HEART Score Troponin: Troponin T < 0.010 ng/mL (0.00-0.029) 11/26/21 05:35 Results - Labs CBC & Chem 7: 11/27/21 06:00 11/27/21 06:00 Labs: Laboratory Last Values WBC 10.0 K/mm3 (4.5-11.0) 11/27/21 06:00 RBC 4.68 M/mm3 (3.65-5.03) 11/27/21 06:00 Hgb 15.3 gm/dl (11.8-15.2) H 11/27/21 06:00 Hct 45.2 % (35.5-45.6) 11/27/21 06:00 MCV 97 fl (84-94) H 11/27/21 06:00 MCH 33 pg (28-32) H 11/27/21 06:00 MCHC 34 % (32-34) 11/27/21 06:00 RDW 12.4 % (13.2-15.2) L 11/27/21 06:00 Plt Count 192 K/mm3 (140-440) 11/27/21 06:00 Lymph % (Auto) 32.6 % (13.4-35.0) 11/27/21 06:00 Parmer % (Auto) 6.8 % (0.0-7.3) 11/27/21 06:00 Eos % (Auto) 3.0 % (0.0-4.3) 11/27/21 06:00 Baso % (Auto) 0.5 % (0.0-1.8) 11/27/21 06:00 Lymph # (Auto) 3.3 K/mm3 (1.2-5.4) 11/27/21 06:00 Parmer # (Auto) 0.7 K/mm3 (0.0-0.8) 11/27/21 06:00 Eos # (Auto) 0.3 K/mm3 (0.0-0.4) 11/27/21 06:00 Baso # (Auto) 0.0 K/mm3 (0.0-0.1) 11/27/21 06:00 Add Manual Diff Complete 11/26/21 05:35 Total Counted 100 11/26/21 05:35 Seg Neutrophils % 57.1 % (40.0-70.0) 11/27/21 06:00 Seg Neuts % (Manual) 51.0 % (40.0-70.0) 11/26/21 05:35 Band Neutrophils % 0 % 11/26/21 05:35 Lymphocytes % (Manual) 29.0 % (13.4-35.0) 11/26/21 05:35 Reactive Lymphs % (Man) 0 % 11/26/21 05:35 Monocytes % (Manual) 5.0 % (0.0-7.3) 11/26/21 05:35 Eosinophils % (Manual) 15.0 % (0.0-4.3) H 11/26/21 05:35 Basophils % (Manual) 0 % (0.0-1.8) 11/26/21 05:35 Metamyelocytes % 0 % 11/26/21 05:35 Myelocytes % 0 % 11/26/21 05:35 Promyelocytes % 0 % 11/26/21 05:35 Blast Cells % 0 % 11/26/21 05:35 Nucleated RBC % Not Reportable 11/26/21 05:35 Seg Neutrophils # 5.7 K/mm3 (1.8-7.7) 11/27/21 06:00 Seg Neutrophils # Man 4.4 K/mm3 (1.8-7.7) 11/26/21 05:35 Band Neutrophils # 0.0 K/mm3 11/26/21 05:35 Lymphocytes # (Manual) 2.5 K/mm3 (1.2-5.4) 11/26/21 05:35 Abs React Lymphs (Man) 0.0 K/mm3 11/26/21 05:35 Monocytes # (Manual) 0.4 K/mm3 (0.0-0.8) 11/26/21 05:35 Eosinophils # (Manual) 1.3 K/mm3 (0.0-0.4) H 11/26/21 05:35 Basophils # (Manual) 0.0 K/mm3 (0.0-0.1) 11/26/21 05:35 Metamyelocytes # 0.0 K/mm3 11/26/21 05:35 Myelocytes # 0.0 K/mm3 11/26/21 05:35 Promyelocytes # 0.0 K/mm3 11/26/21 05:35 Blast Cells # 0.0 K/mm3 11/26/21 05:35 WBC Morphology Not Reportable 11/26/21 05:35 Hypersegmented Neuts Not Reportable 11/26/21 05:35 Hyposegmented Neuts Not Reportable 11/26/21 05:35 Hypogranular Neuts Not Reportable 11/26/21 05:35 Smudge Cells Not Reportable 11/26/21 05:35 Toxic Granulation Not Reportable 11/26/21 05:35 Toxic Vacuolation Not Reportable 11/26/21 05:35 Dohle Bodies Not Reportable 11/26/21 05:35 Pelger-Huet Anomaly Not Reportable 11/26/21 05:35 Martha Rods Not Reportable 11/26/21 05:35 Platelet Estimate Consistent w auto 11/26/21 05:35 Clumped Platelets Not Reportable 11/26/21 05:35 Plt Clumps, EDTA Not Reportable 11/26/21 05:35 Large Platelets Not Reportable 11/26/21 05:35 Giant Platelets Not Reportable 11/26/21 05:35 Platelet Satelliting Not Reportable 11/26/21 05:35 Plt Morphology Comment Not Reportable 11/26/21 05:35 RBC Morphology Normal 11/26/21 05:35 Dimorphic RBCs Not Reportable 11/26/21 05:35 Polychromasia Not Reportable 11/26/21 05:35 Hypochromasia Not Reportable 11/26/21 05:35 Poikilocytosis Not Reportable 11/26/21 05:35 Anisocytosis Not Reportable 11/26/21 05:35 Microcytosis Not Reportable 11/26/21 05:35 Macrocytosis Not Reportable 11/26/21 05:35 Spherocytes Not Reportable 11/26/21 05:35 Pappenheimer Bodies Not Reportable 11/26/21 05:35 Sickle Cells Not Reportable 11/26/21 05:35 Target Cells Not Reportable 11/26/21 05:35 Tear Drop Cells Not Reportable 11/26/21 05:35 Ovalocytes Not Reportable 11/26/21 05:35 Helmet Cells Not Reportable 11/26/21 05:35 [place] Bodies Not Reportable 11/26/21 05:35 [place] Rings Not Reportable 11/26/21 05:35 [place] Cells Not Reportable 11/26/21 05:35 Bite Cells Not Reportable 11/26/21 05:35 Crenated Cell Not Reportable 11/26/21 05:35 Elliptocytes Not Reportable 11/26/21 05:35 Acanthocytes (Spur) Not Reportable 11/26/21 05:35 Rouleaux Not Reportable 11/26/21 05:35 Hemoglobin C Crystals Not Reportable 11/26/21 05:35 Schistocytes Not Reportable 11/26/21 05:35 Malaria parasites Not Reportable 11/26/21 05:35 Aditya Bodies Not Reportable 11/26/21 05:35 Hem Pathologist Commnt No 11/26/21 05:35 PT 13.2 Sec. (12.2-14.9) 11/26/21 05:35 INR 0.90 (0.87-1.13) 11/26/21 05:35 ABG pH 7.360 (7.320-7.450) 11/26/21 08:55 POC ABG pCO2 44.9 mmHg (32.0-48.0) 11/26/21 08:55 POC ABG pO2 62.8 mmHg (83-108) L 11/26/21 08:55 POC ABG HCO3 24.8 11/26/21 08:55 ABG O2 Saturation 93.0 (0-100) 11/26/21 08:55 POC ABG Base Excess -0.9 11/26/21 08:55 ABG Hemoglobin 15.8 (12.0-17.5) 11/26/21 08:55 ABG Oxyhemoglobin 91.7 (94-98) L 11/26/21 08:55 ABG Methemoglobin 0.3 (0.0-1.5) 11/26/21 08:55 Carboxyhemoglobin 1.1 (0.5-1.5) 11/26/21 08:55 FiO2 % 32.0 11/26/21 08:55 Sodium 142 mmol/L (137-145) 11/27/21 06:00 Potassium 3.4 mmol/L (3.6-5.0) L 11/27/21 06:00 Chloride 105.3 mmol/L (98-107) 11/27/21 06:00 Carbon Dioxide 22 mmol/L (22-30) 11/27/21 06:00 Anion Gap 18 mmol/L 11/27/21 06:00 BUN 14 mg/dL (9-20) 11/27/21 06:00 Creatinine 0.7 mg/dL (0.8-1.3) L 11/27/21 06:00 Estimated GFR > 60 ml/min 11/27/21 06:00 BUN/Creatinine Ratio 20 % 11/27/21 06:00 Glucose 89 mg/dL (75-100) 11/27/21 06:00 Calcium 9.4 mg/dL (8.4-10.2) 11/27/21 06:00 Magnesium 2.10 mg/dL (1.7-2.3) 11/26/21 05:35 Total Bilirubin 0.60 mg/dL (0.1-1.2) 11/26/21 05:35 AST 94 units/L (5-40) H 11/26/21 05:35 ALT 124 units/L (7-56) H 11/26/21 05:35 Alkaline Phosphatase 50 units/L (35-129) 11/26/21 05:35 Total Creatine Kinase 97 units/L (55-170) 11/26/21 05:35 Troponin T < 0.010 ng/mL (0.00-0.029) 11/26/21 05:35 Total Protein 7.5 g/dL (6.3-8.2) 11/26/21 05:35 Albumin 3.8 g/dL (3.9-5) L 11/26/21 05:35 Albumin/Globulin Ratio 1.0 % 11/26/21 05:35 Coronavirus (PCR) Negative (Negative) 11/27/21 Unknown Dutton/IV: Voiding Method Toilet Active Medications - Current Medications Current Medications: Generic Name Dose Route Start Last Admin Trade Name Freq PRN Reason Stop Dose Admin Acetaminophen 650 mg 11/26/21 08:30 Acetaminophen 325 Mg Tab PO Q4H PRN Pain MILD(1-3)/Fever >100.5/HESTER Albuterol/Ipratropium 1 ampul 11/26/21 20:00 11/28/21 04:54 Ipratropium/Albuterol Sulfate 3 Ml Ampul.Neb IH 1 ampul TIDRT MAGDA Administration Alprazolam 1 mg 11/27/21 12:00 Alprazolam 1 Mg Tab PO DAILY PRN Anxiety Docusate Sodium 100 mg 11/26/21 10:00 Docusate Sodium 100 Mg Cap PO BID PRN Constipation Enoxaparin Sodium 40 mg 11/26/21 10:00 11/27/21 09:40 Enoxaparin 40 Mg/0.4 Ml Inj SUB-Q 40 mg QDAY@1000 MAGDA Administration Ceftriaxone Sodium 1 gm in 50 mls @ 100 mls/hr 11/27/21 06:00 11/28/21 07:15 Rocephin/Ns 1 Gm/50 Ml IV 12/01/21 05:59 100 mls/hr Q24H MAGDA Administration Protocol Melatonin 10 mg 11/27/21 22:00 11/27/21 22:47 Melatonin 5 Mg Tab PO 10 mg QHS MAGDA Administration Morphine Sulfate 2 mg 11/26/21 09:00 11/26/21 20:38 Morphine 2 Mg/1 Ml Inj IV 2 mg Q4H PRN Administration Pain , Severe (7-10) Ondansetron HCl 4 mg 11/26/21 08:30 Ondansetron 4 Mg/2 Ml Inj IV Q8H PRN Nausea And Vomiting Oxycodone/Acetaminophen 1 tab 11/26/21 08:30 Oxycodone /Acetaminophen 5-325mg Tab PO Q6H PRN Pain, Moderate (4-6) Prednisone 40 mg 11/27/21 10:00 11/27/21 09:35 Prednisone 20 Mg Tab PO 11/30/21 10:01 40 mg DAILY MAGDA Administration Quetiapine Fumarate 12.5 mg 11/27/21 22:00 11/27/21 22:47 Quetiapine 25 Mg Tab PO 12.5 mg QHS MAGDA Administration Sodium Chloride 10 ml 11/26/21 10:00 11/27/21 22:48 Sodium Chloride 0.9% 10 Ml Flush Syringe IV 10 ml BID MAGDA Administration Sodium Chloride 10 ml 11/26/21 09:00 Sodium Chloride 0.9% 10 Ml Flush Syringe IV PRN PRN LINE FLUSH
[2021-11-28] MEDS: ENOXAPARIN 40 MG/0.4 ML INJ SUB-Q SCH (09:29)
[2021-11-28] MEDS: predniSONE 20 MG TAB PO SCH (09:29)
[2021-11-28] MEDS: MELATONIN 5 MG TAB PO SCH (22:43)
[2021-11-28] MEDS: QUEtiapine 25 MG TAB PO SCH (22:43)
[2021-11-29 07:13] LABS: Basophils % (Auto) 0.6 % (0.0-1.8); Eosinophils # (Auto) 0.4 K/mm3 (0.0-0.4); Eosinophils % (Auto) 5.8 % (0.0-4.3); Hematocrit 41.4 % (35.5-45.6); Hemoglobin 14.7 gm/dl (11.8-15.2); Lymphocytes # (Auto) 2.9 K/mm3 (1.2-5.4); Lymphocytes % (Auto) 43.7 % (13.4-35.0); Mean Corpuscular HGB Conc 36 % (32-34); Mean Corpuscular Volume 96 fl (84-94); Monocytes # (Auto) 0.5 K/mm3 (0.0-0.8); Platelet Count 154 K/mm3 (140-440); Red Blood Count 4.32 M/mm3 (3.65-5.03); Red Cell Distribution Width 12.4 % (13.2-15.2)
[2021-11-29 07:21] LABS: Blood Urea Nitrogen 16 mg/dL (9-20); Calcium 8.6 mg/dL (8.4-10.2); Hemolysis Index 5
[2021-11-29] MEDS: cefTRIAXone/NS 1 GM/50 ML 1 GM/50 ML BAG IV SCH (07:22)
[2021-11-29 07:24] LABS: BUN/Creatinine Ratio 23
[2021-11-29] MEDS: IPRATROPIUM/ALBUTEROL SULFATE 3 ML AMPUL.NEB IH SCH (09:36)
[2021-11-29] MEDS: ENOXAPARIN 40 MG/0.4 ML INJ SUB-Q SCH (09:43)
[2021-11-29] MEDS: predniSONE 20 MG TAB PO SCH (09:43)
--- NOTE | 2021-11-29 09:43 | Discharge Summary ---
Providers - Providers Date of Admission: 11/26/21 07:55 Date of discharge: 11/29/21 Attending physician: NACHO LINO MD Primary care physician: AMOS ANDINO Hospitalization Reason for admission: Acute on chronic COPD exacerbation. Condition: Serious Pertinent studies: Reviewed. Procedures: None. Hospital course: Patient is a 66-year-old male past medical history of COPD (former smoker), anxiety, history of parapneumonic pleural effusion, asthma, and obesity who presented for worsening shortness of breath in the setting of productive sputum for approximately 3-4 weeks. The patient was admitted for management of acute hypoxic respiratory failure in the setting of acute on chronic COPD exacerbation. The patient was started on BiPAP due to significant respiratory distress. He was also initiated on prednisone and Rocephin 1 g daily for management of COPD exacerbation. The patient was successfully weaned to room air and has shown a significant clinical improvement. Patient was found to be negative for coronavirus 19. The patient has completed his entire antibiotic course and steroid course. He is medically clear for discharge. Patient expresses understanding. Disposition: 01 HOME / SELF CARE / HOMELESS Final Discharge Diagnosis (Prints w/discharge instructions): Acute on chronic COPD exacerbation, insomnia, elevated blood pressure, asthma, anxiety, obesity. Time spent for discharge: 45 min Core Measure Documentation - Palliative Care Palliative Care/ Comfort Measures: Not Applicable - Core Measures Any of the following diagnoses?: none Exam - Constitutional Vitals: Temp Pulse Resp BP Pulse Ox 98.2 F 88 17 123/83 91 11/29/21 04:10 11/29/21 08:00 11/29/21 08:00 11/29/21 04:10 11/29/21 09:37 General appearance: Present: no acute distress, well-nourished, obese - EENT Eyes: Present: PERRL, EOM intact ENT: hearing intact, clear oral mucosa, dentition normal - Neck Neck: Present: supple, normal ROM - Respiratory Respiratory effort: normal Respiratory: bilateral: diminished - Cardiovascular Rhythm: regular Heart Sounds: Present: S1 & S2 - Extremities Extremities: no ischemia, pulses intact, pulses symmetrical, No edema, normal temperature, normal color, Full ROM Peripheral Pulses: within normal limits - Abdominal General gastrointestinal: Present: soft, non-tender, non-distended, normal bowel sounds Male genitourinary: Present: deferred - Rectal Rectal Exam: deferred - Integumentary Integumentary: Present: clear, warm, dry - Musculoskeletal Musculoskeletal: strength equal bilaterally - Psychiatric Psychiatric: appropriate mood/affect, intact judgment & insight, memory intact, cooperative - Neurologic Neurologic: CNII-XII intact, moves all extremities - Allied Health Allied health notes reviewed: nursing Plan Activity: no restrictions Diet: low fat Additional Instructions: Patient is a 66-year-old male past medical history of COPD (former smoker), anxiety, history of parapneumonic pleural effusion, asthma, and obesity who presented for worsening shortness of breath in the setting of productive sputum for approximately 3-4 weeks. The patient was admitted for management of acute hypoxic respiratory failure in the setting of acute on chronic COPD exacerbation. The patient was started on BiPAP due to significant respiratory distress. He was also initiated on prednisone and Rocephin 1 g daily for management of COPD exacerbation. The patient was successfully weaned to room air and has shown a significant clinical improvement. Patient was found to be negative for coronavirus 19. The patient has completed his entire antibiotic course and steroid course. He is medically clear for discharge. Patient expresses understanding. Care Plan Goals: Patient is medically clear for discharge. Assessment: Patient is a 66-year-old male past medical history of COPD (former smoker), anxiety, history of parapneumonic pleural effusion, asthma, and obesity who presented for worsening shortness of breath in the setting of productive sputum for approximately 3-4 weeks. The patient was admitted for management of acute hypoxic respiratory failure in the setting of acute on chronic COPD exacerbation. The patient was started on BiPAP due to significant respiratory distress. He was also initiated on prednisone and Rocephin 1 g daily for management of COPD exacerbation. The patient was successfully weaned to room air and has shown a significant clinical improvement. Patient was found to be negative for coronavirus 19. The patient has completed his entire antibiotic course and steroid course. He is medically clear for discharge. Patient expresses understanding. Follow up with: AMOS ANDINO MD [Primary Care Provider] - 7 Days Prescriptions: Melatonin [Melatonin 5MG TAB] 10 mg PO QHS #30 tablet QUEtiapine [SEROquel] 12.5 mg PO QHS PRN #30 tablet PRN Reason: Insomnia
[2021-11-29 10:49] VITALS: BP 128/75
== END 2021-11-29 11:00 | disposition home or self-care (01) | DRG 189 ==
LOC: ED 05:16 → 3A 07:55
PROVIDERS: ADMIT Student in an Organized Health Care Education/Training Program; ATTEND Student in an Organized Health Care Education/Training Program
PROC: 4A033R1 Measurement of Arterial Saturation, Peripheral, Percutaneous Approach (ICD-10-PCS; principal; 2021-11-26)
PROC: 5A09457 Assistance with Respiratory Ventilation, 24-96 Consecutive Hours, Continuous Positive Airway Pressure (ICD-10-PCS; 2021-11-26)
DX: J96.01 Acute respiratory failure with hypoxia (principal); J44.1 Chronic obstructive pulmonary disease with (acute) exacerbation; F41.9 Anxiety disorder, unspecified; E66.9 Obesity, unspecified; Z20.822 Contact with and (suspected) exposure to COVID-19; Z68.35 Body mass index [BMI] 35.0-35.9, adult; Z71.3 Dietary counseling and surveillance; G47.00 Insomnia, unspecified
CPT/HCPCS: 36415; 36600; 71045; 80048; 80053; 82550; 82805; 83735; 84484; 85007; 85025; 85610; 93005; 93010; 94640; 94644; 94660; 94760; G0378; J0456; J0696; J1650; J2270; J2930; J3475; J7040; U0003